=== PATIENT | male | born 1945 | race African-American/Black ===

== ENCOUNTER 2016-12-31 10:29 | Emergency (ER) | payer MEDICARE ==
--- NOTE | 2016-12-31 11:27 | ER Document Report ---
ED Medical Screen (RME) - General Chief Complaint: Shortness Of Breath Stated Complaint: SHORTNESS OF BREATH Time seen by provider: 11:27 Mode of Arrival: Ambulatory Information source: Patient TRAVEL OUTSIDE OF THE [place] IN LAST 30 DAYS: No - HPI Patient complains to provider of: SOB Onset: Other - 3 days Onset/Duration: Persistent Quality of pain: No pain Associated Symptoms: Body/muscle aches, Cough (nonproductive), Shortness of breath Exacerbated by: Denies Relieved by: Denies Similar symptoms previously: No Recently seen / treated by doctor: Yes - Dr Smith Notes: 12/31/16 11:30 Patient is a 71-year-old male with a history of diabetes, hypertension, who presents to the emergency room complaining of difficulty breathing with chest tightness 3 days, last week he had a cough which was productive, that has since resolved, but his shortness of breath and chest tightness has not, he recently saw Dr. Smith for this, was given a pro-air inhaler which is not helping - Related Data Allergies/Adverse Reactions: No Known Allergies Allergy (Verified 12/31/16 10:39) Past Medical History - Past Medical History Cardiac Medical History: Reports: Hx Hypercholesterolemia, Hx Hypertension Pulmonary Medical History: Denies: Hx Tuberculosis Endocrine Medical History: Reports: Hx Diabetes Mellitus Type 2 Renal/ Medical History: Denies: Hx Peritoneal Dialysis Psychiatric Medical History: Denies: Hx Depression Past Surgical History: Reports: Hx Orthopedic Surgery - left shoulder. Denies: Hx Pacemaker - Immunizations Hx Diphtheria, Pertussis, Tetanus Vaccination: Yes Physical Exam - Vital signs Vitals: Temp Pulse Resp BP Pulse Ox 97.8 F 66 18 203/112 H 95 12/31/16 10:38 12/31/16 10:38 12/31/16 10:38 12/31/16 10:38 12/31/16 10:38 Course - Vital Signs Vital signs: Temp Pulse Resp BP Pulse Ox 97.8 F 66 18 203/112 H 95 12/31/16 10:38 12/31/16 10:38 12/31/16 10:38 12/31/16 10:38 12/31/16 10:38
[2016-12-31] MEDS ORDERED: IPRATROPIUM/ALBUTEROL 0.5-2.5 MG/3 ML AMPUL NEB ONE (11:28)
[2016-12-31] MEDS ORDERED: CLONIDINE HCL 0.2 MG TABLET PO ONE (11:29)
[2016-12-31 11:49] LABS: ABSOLUTE EOSINOPHILS # (AUTO) 0.2 10^3/uL (0.0-0.6); ABSOLUTE LYMPHOCYTES (AUTO) 0.7 10^3/uL (0.5-4.7); ABSOLUTE MONOCYTES (AUTO) 0.4 10^3/uL (0.1-1.4); ABSOLUTE NEUT (AUTO) 4.5 10^3/uL (1.7-8.2); BASOPHILS % (AUTO) 0.6 % (0-2); EOSINOPHILS % (AUTO) 4.2 % (0-6); HEMATOCRIT 32.2 % (37.9-51.0); HEMOGLOBIN 10.5 g/dL (13.5-17.0); HGB HCT DIFFERENCE -0.7; LYMPHOCYTES % (AUTO) 11.2 % (13-45); MEAN CORPUSCULAR HEMOGLOBIN 27.5 pg (27.0-33.4); MEAN CORPUSCULAR HGB CONC 32.7 g/dL (32.0-36.0); MEAN CORPUSCULAR VOLUME 84 fl (80-97); MONOCYTES % (AUTO) 7.6 % (3-13); RED BLOOD COUNT 3.83 10^6/uL (4.35-5.55); RED CELL DISTRIBUTION WIDTH 16.1 % (11.5-14.0); SEGMENTED NEUTROPHILS % (AUTO) 76.4 % (42-78); WHITE BLOOD COUNT 5.8 10^3/uL (4.0-10.5)
[2016-12-31 12:04] LABS: ALANINE AMINOTRANSFERASE 47 U/L (21-72); ALBUMIN 3.9 g/dL (3.5-5.0); ALKALINE PHOSPHATASE 77 U/L (38-126); ANION GAP 14 (5-19); ASPARTATE AMINO TRANSFERASE 22 U/L (17-59); BILIRUBIN,DIRECT 0.3 mg/dL (0.0-0.4); BILIRUBIN,TOTAL 1.2 mg/dL (0.2-1.3); BLOOD UREA NITROGEN 44 mg/dL (7-20); CALCIUM 9.4 mg/dL (8.4-10.2); CARBON DIOXIDE 24 mmol/L (22-30); CHLORIDE 103 mmol/L (98-107); CREATINE KINASE 197 U/L (55-170); CREATININE RESULT 5.31 mg/dL (0.52-1.25); GLUCOSE 239 mg/dL (75-110); POTASSIUM 3.4 mmol/L (3.6-5.0); SODIUM 141.2 mmol/L (137-145); TOTAL PROTEIN 7.1 g/dL (6.3-8.2)
[2016-12-31 12:16] LABS: CREATINE KINASE MB 3.92 ng/mL (<4.55)
[2016-12-31 12:18] LABS: TROPONIN I 0.05 ng/mL
[2016-12-31] MEDS ORDERED: NITROGLYCERIN 2% OINTMENT 1 GM PACKET TP ONE (12:38)
--- NOTE | 2016-12-31 13:26 | EKG REPORT ---
SEVERITY:- ABNORMAL ECG - SINUS RHYTHM FIRST DEGREE AV BLOCK PROBABLE LEFT ATRIAL ABNORMALITY NONSPECIFIC INTRAVENTRICULAR CONDUCTION DELAY LEFT VENTRICULAR HYPERTROPHY : Confirmed by: Tejal Norris MD 31-Dec-2016 13:25:24
[2016-12-31] MEDS ORDERED: HYDRALAZINE HCL 50 MG TABLET PO ONE (13:49)
[2016-12-31] MEDS ORDERED: CLONIDINE HCL 0.1 MG TABLET PO ONE (13:49)
--- NOTE | 2016-12-31 14:49 | ER Document Report ---
ED General - General Chief Complaint: Shortness Of Breath Stated Complaint: SHORTNESS OF BREATH Mode of Arrival: Ambulatory TRAVEL OUTSIDE OF THE [place] IN LAST 30 DAYS: No - HPI Patient complains to provider of: shortness of breath Notes: Patient with a history of chronic kidney disease also states he has a history of CHF coming in today for shortness of breath. Patient states was recently seen by his PCP and was given an inhaler states she's only using inhaler twice however did not have any relief therefore came to the ER this morning. Patient did receive a nebulizer treatment from the Dr. carreno upon my evaluation patient states his dyspnea has improved 100% and is no longer symptomatic. Patient denies any recent travel denies any fevers chills nausea vomiting diarrhea chest pain abdominal pain. Patient states she is compliant with his blood pressure medications although he isn't hypertensive. Patient states that his cell attendant helper Dr. Boyle is currently doing specialized testing is taking them off a lot of medications. Patient states he is currently on Lasix clonidine and losartan of which she has taken appropriately. Upon my evaluation patient is in no obvious distress - Related Data Allergies/Adverse Reactions: No Known Allergies Allergy (Verified 12/31/16 10:39) Past Medical History - General Information source: Patient - Social History Smoking Status: Never Smoker Chew tobacco use (# tins/day): No Frequency of alcohol use: None Drug Abuse: None Family History: None Patient has suicidal ideation: No Patient has homicidal ideation: No - Past Medical History Cardiac Medical History: Reports: Hx Hypercholesterolemia, Hx Hypertension Pulmonary Medical History: Denies: Hx Tuberculosis Endocrine Medical History: Reports: Hx Diabetes Mellitus Type 2 Renal/ Medical History: Denies: Hx Peritoneal Dialysis Psychiatric Medical History: Denies: Hx Depression Past Surgical History: Reports: Hx Orthopedic Surgery - left shoulder. Denies: Hx Pacemaker - Immunizations Hx Diphtheria, Pertussis, Tetanus Vaccination: Yes Hx Pneumococcal Vaccination: 05/12/12 Review of Systems - Review of Systems Constitutional: No symptoms reported EENT: No symptoms reported Cardiovascular: No symptoms reported Respiratory: Short of breath Gastrointestinal: No symptoms reported Genitourinary: No symptoms reported Male Genitourinary: No symptoms reported Musculoskeletal: No symptoms reported Skin: No symptoms reported Hematologic/Lymphatic: No symptoms reported Neurological/Psychological: No symptoms reported Physical Exam - Vital signs Vitals: Temp Pulse Resp BP Pulse Ox 97.8 F 66 18 203/112 H 95 12/31/16 10:38 12/31/16 10:38 12/31/16 10:38 12/31/16 10:38 12/31/16 10:38 Interpretation: Hypertensive - General General appearance: Appears well, Alert - HEENT Head: Normocephalic, Atraumatic Eyes: Normal Pupils: PERRL - Respiratory Respiratory status: No respiratory distress Chest status: Nontender Breath sounds: Normal Chest palpation: Normal - Cardiovascular Rhythm: Regular Heart sounds: Normal auscultation Murmur: No - Abdominal Inspection: Normal Distension: No distension Bowel sounds: Normal Tenderness: Nontender Organomegaly: No organomegaly - Back Back: Normal, Nontender - Extremities General upper extremity: Normal inspection, Nontender, Normal color, Normal ROM , Normal temperature General lower extremity: Normal inspection, Nontender, Normal color, Normal ROM , Normal temperature, Normal weight bearing. No: Yulia's sign - Neurological Neuro grossly intact: Yes Cognition: Normal Orientation: AAOx4 Goff Coma Scale Eye Opening: Spontaneous Celestine Coma Scale Verbal: Oriented Celestine Coma Scale Motor: Obeys Commands Celestine Coma Scale Total: 15 Speech: Normal Motor strength normal: LUE, RUE, LLE, RLE Sensory: Normal - Psychological Associated symptoms: Normal affect, Normal mood - Skin Skin Temperature: Warm Skin Moisture: Dry Skin Color: Normal Course - Re-evaluation Re-evalutation: 12/31/16 15:23 Review the patient's previous visits that showed admission for hypertensive urgency however upon discharge patient's current medications have changed drastically. I did touch base with cell attendant helper on-call Dr. antunez who did suggest patient can be started on hydralazine 50 mg twice a day. This was performed the reduction the patient's blood pressure. Patient is to remain asymptomatic states that his breathing was 100% better. Instructed the patient to using inhaler that is our been prescribed 2 puffs every 4 hours for the next 5 days more likely is having some mild reactive airway disease. Patient will be discharged home follow-up primary care physician and his own cell attendant helper - Vital Signs Vital signs: Temp Pulse Resp BP Pulse Ox 98.2 F 64 20 219/113 H 100 12/31/16 12:33 12/31/16 12:33 12/31/16 12:33 12/31/16 12:33 12/31/16 12:33 - Laboratory Result Diagrams: 12/31/16 11:35 12/31/16 11:35 Laboratory results interpreted by me: 12/31/16 12/31/16 12/31/16 11:35 11:35 11:35 RBC 3.83 L Hgb 10.5 L Hct 32.2 L RDW 16.1 H Lymphocytes % 11.2 L Potassium 3.4 L BUN 44 H Creatinine 5.31 H Est GFR ( Amer) 13 L Est GFR (Non-Af Amer) 11 L Glucose 239 H Creatine Kinase 197 H NT-Pro-B Natriuret Pep 6770 H Discharge - Discharge Clinical Impression: Dyspnea Qualifiers: Dyspnea type: unspecified Qualified Code(s): R06.00 - Dyspnea, unspecified Chronic kidney disease (CKD) Qualifiers: Chronic kidney disease stage: unspecified stage Qualified Code(s): N18.9 - Chronic kidney disease, unspecified Hypertension Qualifiers: Hypertension type: unspecified secondary hypertension Qualified Code(s): I15.9 - Secondary hypertension, unspecified; I15 - Secondary hypertension Condition: Good Disposition: HOME, SELF-CARE Instructions: Dyspnea, Nonspecific ([facility]) Additional Instructions: Take medication as prescribed. Please use the inhaler that you have 2 puffs at least every 4 hours for the next 5 days you may use the inhaler as needed. Return to ER symptoms worsen. Please let Dr. Boyle noted that we did adjust your blood pressure medication and have added you back on hydralazine in consultation with Dr. Antunez Prescriptions: Hydralazine HCl 50 mg PO BID #60 tablet Forms: Elevated Blood Pressure
[2016-12-31 15:42] VITALS: BP 178/116
== END 2016-12-31 15:45 | disposition home or self-care (01) ==
LOC: ER 10:29
DX: I13.0 Hypertensive heart and chronic kidney disease with heart failure and stage 1 through stage 4 chronic kidney disease, or unspecified chronic kidney disease (principal); I50.9 Heart failure, unspecified; N18.9 Chronic kidney disease, unspecified; E11.22 Type 2 diabetes mellitus with diabetic chronic kidney disease; Z79.899 Other long term (current) drug therapy; R06.02 Shortness of breath
CPT/HCPCS: 93005; 94640; 99285; 36415; 82553; 82550; 85025; 80053; 84484; 83880; 71020; 93010; A9270 ×4; J7620

== ENCOUNTER → 2017-01-24 | Outpatient (CLI) | payer MEDICARE ==
[2017-01-24 13:59] LABS: HEMATOCRIT 30.8 % (37.9-51.0); HEMOGLOBIN 10.1 g/dL (13.5-17.0); HGB HCT DIFFERENCE -0.5; MEAN CORPUSCULAR HEMOGLOBIN 27.5 pg (27.0-33.4); MEAN CORPUSCULAR HGB CONC 32.7 g/dL (32.0-36.0); MEAN CORPUSCULAR VOLUME 84 fl (80-97); RED BLOOD COUNT 3.65 10^6/uL (4.35-5.55); RED CELL DISTRIBUTION WIDTH 16.5 % (11.5-14.0); WHITE BLOOD COUNT 5.3 10^3/uL (4.0-10.5)
[2017-01-24 14:18] LABS: ALANINE AMINOTRANSFERASE 40 U/L (21-72); ALBUMIN 4.2 g/dL (3.5-5.0); ALKALINE PHOSPHATASE 71 U/L (38-126); ANION GAP 17 (5-19); ASPARTATE AMINO TRANSFERASE 25 U/L (17-59); BILIRUBIN,DIRECT 0.4 mg/dL (0.0-0.4); BILIRUBIN,TOTAL 0.8 mg/dL (0.2-1.3); BLOOD UREA NITROGEN 49 mg/dL (7-20); CALCIUM 9.4 mg/dL (8.4-10.2); CARBON DIOXIDE 20 mmol/L (22-30); CHLORIDE 104 mmol/L (98-107); CREATINE KINASE 362 U/L (55-170); CREATININE RESULT 5.74 mg/dL (0.52-1.25); GLUCOSE 123 mg/dL (75-110); LDH 578 U/L (313-618); MAGNESIUM 2.3 mg/dL (1.6-2.3); POTASSIUM 3.9 mmol/L (3.6-5.0); SODIUM 140.8 mmol/L (137-145); TOTAL PROTEIN 7.3 g/dL (6.3-8.2)
== END ==
LOC: OD 13:00
PROVIDERS: ATTEND Internal Medicine Nephrology
DX: E11.22 Type 2 diabetes mellitus with diabetic chronic kidney disease (principal); I12.9 Hypertensive chronic kidney disease with stage 1 through stage 4 chronic kidney disease, or unspecified chronic kidney disease; N18.4 Chronic kidney disease, stage 4 (severe); D64.9 Anemia, unspecified
CPT/HCPCS: 36415; 80053; 82550; 83615; 83735; 83970; 84100; 85027

== ENCOUNTER 2017-01-25 07:14 | Emergency (ER) | payer MEDICARE ==
--- NOTE | 2017-01-25 08:16 | ER Document Report ---
ED Respiratory Problem - General Chief Complaint: Breathing Difficulty Stated Complaint: WEAKNESS Time Seen by Provider: 01/25/17 08:12 Mode of Arrival: Ambulatory Information source: Patient Notes: Patient is a 71-year-old -[place] male who presents to the ER today for shortness of breath after he woke up this morning, was getting ready for his day , about to make coffee and all of a sudden had an episode of 10-15 minutes long where he could not catch his breath. Patient states that he was gasping for air and his daughter started "beating on his chest" per . He states he felt like he had something in his throat that was choking him. He has never had this happen before. He states that after 15 minutes of his daughter telling him to "just brief" that he finally calmed down and was able to catch his breath. He did start a new medication for the first time last night, nifedipine 60 mg. He denies any chest pain except for after the fact which he blames on his daughter beating on his chest. He denies any symptoms at all now. He has no history of heart attack, stroke or blood clots. TRAVEL OUTSIDE OF THE [place] IN LAST 30 DAYS: No - Related Data Allergies/Adverse Reactions: No Known Allergies Allergy (Verified 12/31/16 10:39) Past Medical History - General Information source: Patient - Social History Smoking Status: Former Smoker Family History: None - Past Medical History Cardiac Medical History: Reports: Hx Hypercholesterolemia, Hx Hypertension Pulmonary Medical History: Denies: Hx Tuberculosis Endocrine Medical History: Reports: Hx Diabetes Mellitus Type 2 Renal/ Medical History: Denies: Hx Peritoneal Dialysis Psychiatric Medical History: Denies: Hx Depression Past Surgical History: Reports: Hx Orthopedic Surgery - left shoulder. Denies: Hx Pacemaker - Immunizations Hx Diphtheria, Pertussis, Tetanus Vaccination: Yes Hx Pneumococcal Vaccination: 05/12/12 Review of Systems - Review of Systems Constitutional: No symptoms reported EENT: No symptoms reported Cardiovascular: See HPI Respiratory: See HPI Gastrointestinal: See HPI Genitourinary: No symptoms reported Male Genitourinary: No symptoms reported Musculoskeletal: No symptoms reported Skin: No symptoms reported Hematologic/Lymphatic: No symptoms reported Neurological/Psychological: No symptoms reported Physical Exam - Vital signs Vitals: Temp Pulse Resp BP Pulse Ox 97.5 F 73 18 122/67 94 01/25/17 07:21 01/25/17 07:21 01/25/17 07:21 01/25/17 07:21 01/25/17 07:21 - Notes Notes: PHYSICAL EXAMINATION: GENERAL: Well-appearing, smiling and in no acute distress. HEAD: Atraumatic, normocephalic. EYES: Pupils equal round and reactive to light, extraocular movements intact, sclera anicteric, conjunctiva are normal. ENT: ear canals without erythema or foreign body, TMs pearly bone with good bony landmarks, nares patent, oropharynx clear without exudates. Moist mucous membranes. airway patent NECK: Normal range of motion, supple without lymphadenopathy LUNGS: CTAB and equal. No wheezes rales or rhonchi. HEART: Regular rate and rhythm without murmurs ABDOMEN: Soft, no tenderness. No guarding, no rebound EXTREMITIES: Normal range of motion, no pitting edema. No cyanosis. NEUROLOGICAL: Cranial nerves grossly intact. Normal sensory/motor exams. PSYCH: Normal mood, normal affect. SKIN: Warm, Dry, normal turgor, no rashes or lesions noted Course - Re-evaluation Re-evalutation: 01/25/17 12:04 normal chest x-ray, soft tissue neck x-ray and all other lab work is at baseline. Patient did have a slightly elevated troponin, but repeat troponin 3 hours later was decreased and within normal limits. - Vital Signs Vital signs: Temp Pulse Resp BP Pulse Ox 97.5 F 73 15 146/82 H 94 01/25/17 07:21 01/25/17 07:21 01/25/17 10:01 01/25/17 10:01 01/25/17 10:01 - Laboratory Result Diagrams: 01/25/17 08:12 01/25/17 08:12 Laboratory results interpreted by me: 01/25/17 01/25/17 01/25/17 08:12 08:12 09:57 RBC 3.86 L Hgb 10.4 L Hct 32.5 L RDW 16.3 H Lymphocytes % 10.4 L Carbon Dioxide 20 L BUN 53 H Creatinine 5.84 H Est GFR ( Amer) 12 L Est GFR (Non-Af Amer) 10 L Glucose 135 H Direct Bilirubin 0.6 H Creatine Kinase 274 H Lipase 406.5 H Urine Protein >=500 H Urine Glucose (UA) 50 H Discharge - Discharge Clinical Impression: SOB (shortness of breath) HTN (hypertension) Qualifiers: Hypertension type: essential hypertension Qualified Code(s): I10 - Essential ( primary) hypertension Condition: Stable Disposition: HOME, SELF-CARE Additional Instructions: Return immediately for any new or worsening symptoms. Follow up with primary care provider, call tomorrow to make followup appointment. Prescriptions: Amlodipine Besylate 10 mg PO DAILY #14 tab Referrals: BHUPENDRA GUZMAN MD [Primary Care Provider] - Follow up as needed
[2017-01-25 08:31] LABS: ABSOLUTE BASOPHILS # (AUTO) 0.1 10^3/uL (0.0-0.2); ABSOLUTE EOSINOPHILS # (AUTO) 0.3 10^3/uL (0.0-0.6); ABSOLUTE LYMPHOCYTES (AUTO) 0.7 10^3/uL (0.5-4.7); ABSOLUTE MONOCYTES (AUTO) 0.6 10^3/uL (0.1-1.4); ABSOLUTE NEUT (AUTO) 5.5 10^3/uL (1.7-8.2); EOSINOPHILS % (AUTO) 3.7 % (0-6); HEMATOCRIT 32.5 % (37.9-51.0); HEMOGLOBIN 10.4 g/dL (13.5-17.0); HGB HCT DIFFERENCE -1.3; LYMPHOCYTES % (AUTO) 10.4 % (13-45); MEAN CORPUSCULAR HEMOGLOBIN 27.1 pg (27.0-33.4); MEAN CORPUSCULAR HGB CONC 32.1 g/dL (32.0-36.0); MEAN CORPUSCULAR VOLUME 84 fl (80-97); MONOCYTES % (AUTO) 8.1 % (3-13); RED BLOOD COUNT 3.86 10^6/uL (4.35-5.55); RED CELL DISTRIBUTION WIDTH 16.3 % (11.5-14.0); SEGMENTED NEUTROPHILS % (AUTO) 76.8 % (42-78); WHITE BLOOD COUNT 7.1 10^3/uL (4.0-10.5)
[2017-01-25 08:48] LABS: ALANINE AMINOTRANSFERASE 35 U/L (21-72); ALBUMIN 4.3 g/dL (3.5-5.0); ALKALINE PHOSPHATASE 72 U/L (38-126); ANION GAP 14 (5-19); ASPARTATE AMINO TRANSFERASE 28 U/L (17-59); BILIRUBIN,DIRECT 0.6 mg/dL (0.0-0.4); BLOOD UREA NITROGEN 53 mg/dL (7-20); CALCIUM 9.5 mg/dL (8.4-10.2); CARBON DIOXIDE 20 mmol/L (22-30); CHLORIDE 106 mmol/L (98-107); CREATINE KINASE 274 U/L (55-170); CREATININE RESULT 5.84 mg/dL (0.52-1.25); GLUCOSE 135 mg/dL (75-110); LIPASE 406.5 U/L (23-300); POTASSIUM 4.4 mmol/L (3.6-5.0); TOTAL PROTEIN 7.8 g/dL (6.3-8.2)
[2017-01-25 09:00] LABS: CREATINE KINASE MB 3.98 ng/mL (<4.55)
[2017-01-25 09:12] LABS: TROPONIN I 0.035 ng/mL
[2017-01-25 10:11] LABS: APPEARANCE,URINE CLEAR; BILIRUBIN,URINE NEGATIVE (NEGATIVE); GLUCOSE, URINE 50 mg/dL (NEGATIVE); KETONES,URINE NEGATIVE (NEGATIVE); LEUKOCYTE ESTERASE,URINE NEGATIVE (NEGATIVE); NITRITE,URINE NEGATIVE (NEGATIVE); PROTEIN,URINE >=500 mg/dL (NEGATIVE); URINE SPECIFIC GRAVITY 1.011; UROBILINOGEN,URINE NEGATIVE mg/dL (<2.0)
[2017-01-25] MEDS ORDERED: AMLODIPINE BESYLATE 10 MG TABLET PO ONE (12:12)
[2017-01-25 12:50] VITALS: BP 168/95
--- NOTE | 2017-01-25 13:13 | EKG REPORT ---
SEVERITY:- ABNORMAL ECG - SINUS RHYTHM FIRST DEGREE AV BLOCK PROBABLE LEFT VENTRICULAR HYPERTROPHY : Confirmed by: Jovany Palomares 25-Jan-2017 13:12:38
== END 2017-01-25 12:50 | disposition home or self-care (01) ==
LOC: ER 07:14
DX: R06.02 Shortness of breath (principal); I10 Essential (primary) hypertension; R53.1 Weakness; Z87.891 Personal history of nicotine dependence
CPT/HCPCS: 93005; 99285; 36415; 82553; 82550; 83690; 85025; 80053; 81001; 84484; 71020; 70360; 93010; A9270

== ENCOUNTER → 2017-02-06 | Outpatient (CLI) | payer MEDICARE ==
[2017-02-06 12:59] LABS: HEMATOCRIT 32.8 % (37.9-51.0); HEMOGLOBIN 10.8 g/dL (13.5-17.0); HGB HCT DIFFERENCE -0.4; MEAN CORPUSCULAR HEMOGLOBIN 27.2 pg (27.0-33.4); MEAN CORPUSCULAR VOLUME 83 fl (80-97); RED BLOOD COUNT 3.97 10^6/uL (4.35-5.55); WHITE BLOOD COUNT 5.9 10^3/uL (4.0-10.5)
[2017-02-06 13:28] LABS: ANION GAP 13 (5-19); BLOOD UREA NITROGEN 50 mg/dL (7-20); CALCIUM 9.7 mg/dL (8.4-10.2); CARBON DIOXIDE 23 mmol/L (22-30); CHLORIDE 104 mmol/L (98-107); CREATINE KINASE 292 U/L (55-170); CREATININE RESULT 6.09 mg/dL (0.52-1.25); GLUCOSE 110 mg/dL (75-110); POTASSIUM 4.2 mmol/L (3.6-5.0); SODIUM 139.7 mmol/L (137-145)
== END ==
LOC: OD 12:07
PROVIDERS: ATTEND Internal Medicine Nephrology
DX: N18.4 Chronic kidney disease, stage 4 (severe) (principal); R80.9 Proteinuria, unspecified
CPT/HCPCS: 36415; 80048; 82550; 85027

== ENCOUNTER → 2017-02-21 | Outpatient (CLI) | payer MEDICARE ==
[2017-02-21 11:09] LABS: ABSOLUTE BASOPHILS # (AUTO) 0.1 10^3/uL (0.0-0.2); ABSOLUTE EOSINOPHILS # (AUTO) 0.4 10^3/uL (0.0-0.6); ABSOLUTE LYMPHOCYTES (AUTO) 1.1 10^3/uL (0.5-4.7); ABSOLUTE MONOCYTES (AUTO) 0.6 10^3/uL (0.1-1.4); ABSOLUTE NEUT (AUTO) 4.2 10^3/uL (1.7-8.2); EOSINOPHILS % (AUTO) 6.4 % (0-6); HEMATOCRIT 36.5 % (37.9-51.0); HEMOGLOBIN 12.2 g/dL (13.5-17.0); HGB HCT DIFFERENCE 0.1; LYMPHOCYTES % (AUTO) 16.6 % (13-45); MEAN CORPUSCULAR HEMOGLOBIN 27.4 pg (27.0-33.4); MEAN CORPUSCULAR HGB CONC 33.4 g/dL (32.0-36.0); MEAN CORPUSCULAR VOLUME 82 fl (80-97); MONOCYTES % (AUTO) 9.2 % (3-13); RED BLOOD COUNT 4.45 10^6/uL (4.35-5.55); RED CELL DISTRIBUTION WIDTH 15.5 % (11.5-14.0); SEGMENTED NEUTROPHILS % (AUTO) 66.8 % (42-78); WHITE BLOOD COUNT 6.4 10^3/uL (4.0-10.5)
[2017-02-21 11:25] LABS: ANION GAP 14 (5-19); BLOOD UREA NITROGEN 59 mg/dL (7-20); CALCIUM 9.8 mg/dL (8.4-10.2); CARBON DIOXIDE 23 mmol/L (22-30); CHLORIDE 100 mmol/L (98-107); CREATININE RESULT 6.32 mg/dL (0.52-1.25); GLUCOSE 292 mg/dL (75-110); PHOSPHORUS 5.3 mg/dL (2.5-4.5); POTASSIUM 4.2 mmol/L (3.6-5.0); SODIUM 137.2 mmol/L (137-145)
== END ==
LOC: OD 09:43
PROVIDERS: ATTEND Internal Medicine Nephrology
DX: N18.4 Chronic kidney disease, stage 4 (severe) (principal); D64.9 Anemia, unspecified; R80.9 Proteinuria, unspecified
CPT/HCPCS: 36415; 80048; 83970; 84100; 85025

== ENCOUNTER → 2017-04-14 | Outpatient (CLI) | payer MEDICARE ==
[2017-04-14 15:29] LABS: HEMATOCRIT 31.8 % (37.9-51.0); HGB HCT DIFFERENCE 1.2; MEAN CORPUSCULAR HEMOGLOBIN 27.5 pg (27.0-33.4); MEAN CORPUSCULAR HGB CONC 34.6 g/dL (32.0-36.0); MEAN CORPUSCULAR VOLUME 79 fl (80-97); RED CELL DISTRIBUTION WIDTH 15.2 % (11.5-14.0); WHITE BLOOD COUNT 6.3 10^3/uL (4.0-10.5)
[2017-04-14 15:43] LABS: ANION GAP 17 (5-19); BLOOD UREA NITROGEN 68 mg/dL (7-20); CARBON DIOXIDE 21 mmol/L (22-30); CHLORIDE 103 mmol/L (98-107); CREATININE RESULT 8.49 mg/dL (0.52-1.25); GLUCOSE 194 mg/dL (75-110); PHOSPHORUS 6.4 mg/dL (2.5-4.5); POTASSIUM 3.6 mmol/L (3.6-5.0); SODIUM 140.5 mmol/L (137-145)
== END ==
LOC: OD 14:10
PROVIDERS: ATTEND Internal Medicine Nephrology
DX: I12.9 Hypertensive chronic kidney disease with stage 1 through stage 4 chronic kidney disease, or unspecified chronic kidney disease (principal); N18.4 Chronic kidney disease, stage 4 (severe); D64.9 Anemia, unspecified; E11.9 Type 2 diabetes mellitus without complications
CPT/HCPCS: 36415; 80048; 83970; 84100; 85027

== ENCOUNTER → 2017-06-09 | Outpatient (CLI) | payer MEDICARE ==
[2017-06-09 17:12] LABS: HEMATOCRIT 28.6 % (37.9-51.0); HEMOGLOBIN 9.5 g/dL (13.5-17.0); HGB HCT DIFFERENCE -0.1; MEAN CORPUSCULAR HGB CONC 33.1 g/dL (32.0-36.0); MEAN CORPUSCULAR VOLUME 81 fl (80-97); RED BLOOD COUNT 3.51 10^6/uL (4.35-5.55); RED CELL DISTRIBUTION WIDTH 16.7 % (11.5-14.0); WHITE BLOOD COUNT 8.7 10^3/uL (4.0-10.5)
[2017-06-09 17:34] LABS: BLOOD UREA NITROGEN 72 mg/dL (7-20); CALCIUM 10.3 mg/dL (8.4-10.2); GLUCOSE 110 mg/dL (75-110); MAGNESIUM 2.1 mg/dL (1.6-2.3)
[2017-06-09 18:22] LABS: CARBON DIOXIDE 17 mmol/L (22-30); CHLORIDE 101 mmol/L (98-107); POTASSIUM 3.9 mmol/L (3.6-5.0); SODIUM 139.8 mmol/L (137-145)
[2017-06-09 18:24] LABS: ANION GAP 22 (5-19)
[2017-06-11 07:44] LABS: HEPATITIS C VIRUS AB <0.1 s/co ratio (0.0-0.9)
== END ==
LOC: OD 16:06
PROVIDERS: ATTEND Internal Medicine Nephrology
DX: N18.5 Chronic kidney disease, stage 5 (principal); R80.9 Proteinuria, unspecified; I50.9 Heart failure, unspecified; E87.5 Hyperkalemia; Z11.59 Encounter for screening for other viral diseases
CPT/HCPCS: 36415; 80048; 82728; 83540; 83550; 83735; 85027; 86704; 86803; 86804; 87340

== ENCOUNTER 2018-06-02 13:14 | Emergency (ER) | payer OTHER, MEDICARE ==
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
[2018-06-02 17:25] VITALS: BP 208/88
== END 2018-06-02 17:18 | disposition home or self-care (01) ==
LOC: ER 13:14
DX: S16.1XXA Strain of muscle, fascia and tendon at neck level, initial encounter (principal); S09.90XA Unspecified injury of head, initial encounter; M54.89 Other dorsalgia; R51 Headache; M54.2 Cervicalgia; V49.40XA Driver injured in collision with unspecified motor vehicles in traffic accident, initial encounter; I12.0 Hypertensive chronic kidney disease with stage 5 chronic kidney disease or end stage renal disease; E11.22 Type 2 diabetes mellitus with diabetic chronic kidney disease; N18.6 End stage renal disease; Z99.2 Dependence on renal dialysis
CPT/HCPCS: 70450; 72070; 72125; 99284

== ENCOUNTER → 2019-08-18 | Outpatient (CLI) | payer MEDICARE ==
[2019-08-18 09:08] LABS: ABSOLUTE BASOPHILS # (AUTO) 0.1 10^3/uL (0.0-0.2); ABSOLUTE EOSINOPHILS # (AUTO) 0.4 10^3/uL (0.0-0.6); ABSOLUTE LYMPHOCYTES (AUTO) 0.8 10^3/uL (0.5-4.7); ABSOLUTE MONOCYTES (AUTO) 0.5 10^3/uL (0.1-1.4); ABSOLUTE NEUT (AUTO) 4.6 10^3/uL (1.7-8.2); BASOPHILS % (AUTO) 0.8 % (0-2); EOSINOPHILS % (AUTO) 6.1 % (0-6); HEMATOCRIT 33.4 % (37.9-51.0); HEMOGLOBIN 11.3 g/dL (13.5-17.0); LYMPHOCYTES % (AUTO) 12.9 % (13-45); MEAN CORPUSCULAR HEMOGLOBIN 28.8 pg (27.0-33.4); MEAN CORPUSCULAR HGB CONC 33.9 g/dL (32.0-36.0); MEAN CORPUSCULAR VOLUME 85 fl (80-97); MONOCYTES % (AUTO) 8.5 % (3-13); PLATELET COUNT 232 10^3/uL (150-450); RED BLOOD COUNT 3.93 10^6/uL (4.35-5.55); RED CELL DISTRIBUTION WIDTH 15.8 % (11.5-14.0); SEGMENTED NEUTROPHILS % (AUTO) 71.7 % (42-78); TOTAL CELLS COUNTED % (AUTO) 100 %; WHITE BLOOD COUNT 6.4 10^3/uL (4.0-10.5)
[2019-08-18 09:28] LABS: ALBUMIN 4.3 g/dL (3.5-5.0); ALKALINE PHOSPHATASE 119 U/L (38-126); ANION GAP 16 (5-19); ASPARTATE AMINO TRANSFERASE 16 U/L (17-59); BILIRUBIN,DIRECT 0.4 mg/dL (0.0-0.4); BILIRUBIN,TOTAL 0.6 mg/dL (0.2-1.3); BLOOD UREA NITROGEN 47 mg/dL (7-20); CALCIUM 9.8 mg/dL (8.4-10.2); CARBON DIOXIDE 21 mmol/L (22-30); CHLORIDE 104 mmol/L (98-107); CHOLESTEROL 127.39 mg/dL (0-200); GLUCOSE 144 mg/dL (75-110); POTASSIUM 4.6 mmol/L (3.6-5.0); TRIGLYCERIDES 180 mg/dL (<150)
[2019-08-18 09:39] LABS: DIRECT LDL 66 mg/dL (<100)
== END ==
LOC: OD 07:52
PROVIDERS: ATTEND Internal Medicine
DX: E11.22 Type 2 diabetes mellitus with diabetic chronic kidney disease (principal); I12.0 Hypertensive chronic kidney disease with stage 5 chronic kidney disease or end stage renal disease; N18.5 Chronic kidney disease, stage 5; E78.00 Pure hypercholesterolemia, unspecified; R35.0 Frequency of micturition; Z79.899 Other long term (current) drug therapy
CPT/HCPCS: 36415; 80053; 80061; 83036; 84153; 85025

== ENCOUNTER 2019-11-28 15:59 | Inpatient (IN) | payer MEDICARE ==
[2019-11-28] MEDS ORDERED: ASPIRIN 81 MG TABLET, CHEWABLE PO ONE (16:28)
--- NOTE | 2019-11-28 16:31 | ER Document Report ---
ED Medical Screen (RME) - General Chief Complaint: Chest Tightness Stated Complaint: CHEST TIGHTNESS Time Seen by Provider: 11/28/19 16:25 Primary Care Provider: BHUPENDRA GUZMAN MD [Primary Care Provider] - Follow up as needed Mode of Arrival: Wheelchair Information source: Patient Notes: 74-year-old male with history of dialysis presents to the emergency department with complaints of chest tightness shortness of breath. Patient O2 sats were very low upon arrival. He does not use home oxygen. Patient reports he woke up with chest tightness early this morning approximately 0200. Reports he was having shortness of breath at that time. Denies fever nausea vomiting diarrhea. Reports it does not hurt to take a deep breath he just feels like he is having tightness. Patient is placed on 4 L nasal cannula his O2 sats are 91% and dropped down when he is talking. I have greeted and performed a rapid initial assessment of this patient. A comprehensive ED assessment and evaluation of the patient, analysis of test results and completion of the medical decision making process will be conducted by additional ED providers. TRAVEL OUTSIDE OF THE [place] IN LAST 30 DAYS: No - Related Data Allergies/Adverse Reactions: No Known Allergies Allergy (Verified 06/02/18 13:15) Past Medical History - Past Medical History Cardiac Medical History: Reports: Hx Hypercholesterolemia, Hx Hypertension Pulmonary Medical History: Denies: Hx Tuberculosis Endocrine Medical History: Reports: Hx Diabetes Mellitus Type 2 Renal/ Medical History: Reports: Hx End Stage Renal Disease, Hx Hemodialysis. Denies: Hx Peritoneal Dialysis GI Medical History: Reports: Hx Colonoscopy Musculoskeltal Medical History: Reports Hx Arthritis, Reports Hx Musculoskeletal Deformity, Reports Hx Musculoskeletal Trauma Psychiatric Medical History: Denies: Hx Depression Past Surgical History: Reports: Hx Orthopedic Surgery - left shoulder, Hx Rectal Surgery - Hemorrhoidectomy, Hx Vascular Surgery - Dialysis catheter and dialysis shunt, Other - Eye surgery. Denies: Hx Pacemaker - Immunizations Hx Diphtheria, Pertussis, Tetanus Vaccination: Yes Physical Exam - Vital signs Vitals: Temp Pulse Resp BP Pulse Ox 98.3 F 90 20 219/99 H 80 L 11/28/19 16:23 11/28/19 16:23 11/28/19 16:23 11/28/19 16:23 11/28/19 16:23 Course - Vital Signs Vital signs: Temp Pulse Resp BP Pulse Ox 98.3 F 90 20 219/99 H 92 11/28/19 16:23 11/28/19 16:23 11/28/19 16:23 11/28/19 16:23 11/28/19 16:24 Doctor's Discharge - Discharge Referrals: BHUPENDRA GUZMAN MD [Primary Care Provider] - Follow up as needed
[2019-11-28 17:36] LABS: ABSOLUTE BASOPHILS # (AUTO) 0.1 10^3/uL (0.0-0.2); ABSOLUTE EOSINOPHILS # (AUTO) 0.3 10^3/uL (0.0-0.6); ABSOLUTE LYMPHOCYTES (AUTO) 1.1 10^3/uL (0.5-4.7); ABSOLUTE MONOCYTES (AUTO) 0.4 10^3/uL (0.1-1.4); ABSOLUTE NEUT (AUTO) 5.6 10^3/uL (1.7-8.2); BASOPHILS % (AUTO) 0.9 % (0-2); EOSINOPHILS % (AUTO) 3.8 % (0-6); HEMATOCRIT 34.4 % (37.9-51.0); HEMOGLOBIN 11.9 g/dL (13.5-17.0); LYMPHOCYTES % (AUTO) 14.2 % (13-45); MEAN CORPUSCULAR HEMOGLOBIN 29.9 pg (27.0-33.4); MEAN CORPUSCULAR HGB CONC 34.7 g/dL (32.0-36.0); MEAN CORPUSCULAR VOLUME 86 fl (80-97); MONOCYTES % (AUTO) 5.6 % (3-13); PLATELET COUNT 247 10^3/uL (150-450); RED BLOOD COUNT 3.99 10^6/uL (4.35-5.55); RED CELL DISTRIBUTION WIDTH 14.4 % (11.5-14.0); SEGMENTED NEUTROPHILS % (AUTO) 75.5 % (42-78); TOTAL CELLS COUNTED % (AUTO) 100 %; WHITE BLOOD COUNT 7.5 10^3/uL (4.0-10.5)
[2019-11-28 17:52] LABS: ALKALINE PHOSPHATASE 123 U/L (38-126); ANION GAP 15 (5-19); ASPARTATE AMINO TRANSFERASE 28 U/L (17-59); BILIRUBIN,DIRECT 0.3 mg/dL (0.0-0.4); BILIRUBIN,TOTAL 1.2 mg/dL (0.2-1.3); BLOOD UREA NITROGEN 26 mg/dL (7-20); CALCIUM 10.2 mg/dL (8.4-10.2); CARBON DIOXIDE 25 mmol/L (22-30); CHLORIDE 98 mmol/L (98-107); GLUCOSE 169 mg/dL (75-110); POTASSIUM 4.4 mmol/L (3.6-5.0); TOTAL PROTEIN 8.9 g/dL (6.3-8.2)
--- NOTE | 2019-11-28 17:56 | RADIOLOGY REPORT (SQ) ---
EXAM DESCRIPTION: CHEST 2 VIEWS COMPLETED DATE/TIME: 11/28/2019 5:39 pm REASON FOR STUDY: sob CHEST TIGHTNESS COMPARISON: 01/25/2017 TECHNIQUE: Frontal and lateral radiographic views of the chest acquired. NUMBER OF VIEWS: Two view. LIMITATIONS: None. FINDINGS: LUNGS AND PLEURA: No pneumothorax. Mild interstitial thickening bilaterally. No consolid ation or pleural effusion. MEDIASTINUM AND HILAR STRUCTURES: Stable. HEART AND VASCULAR STRUCTURES: Stable. BONES: No acute findings. HARDWARE: None in the chest. OTHER: No other significant finding. IMPRESSION: Mild interstitial thickening bilaterally. No consolidation or pleural effusion. TECHNICAL DOCUMENTATION: JOB ID: [id number] [place]-72 2010 [employer]- All Rights Reserved Reading location - IP/workstation name: [email or web address]
[2019-11-28 18:04] LABS: TROPONIN I 0.035 ng/mL
[2019-11-28] MEDS ORDERED: NITROGLYCERIN 2% OINTMENT 1 GM PACKET TP ONE (18:52)
[2019-11-28] MEDS ORDERED: FUROSEMIDE INJ/PF 100 MG/10 ML SDV IV ONE (18:52)
[2019-11-28] MEDS ORDERED: ONDANSETRON HCL INJ/PF 4 MG/2 ML SDV IV ONE (18:53)
--- NOTE | 2019-11-28 20:10 | ER Document Report ---
Entered by ALEC NASH SCRIBE 11/28/19 1834 Acting as scribe for:YANETH MILLAN DO ED General - General Chief Complaint: Shortness Of Breath Stated Complaint: CHEST TIGHTNESS Time Seen by Provider: 11/28/19 16:25 Primary Care Provider: BHUPENDRA GUZMAN MD [Primary Care Provider] - Follow up as needed Mode of Arrival: Wheelchair Information source: Patient Notes: 74-year-old male presents to the emergency department complaining of shortness of breath and chest tightness. Patient explained that his shortness of breath began yesterday and his chest tightness woke him from sleep at 2 AM this morning. Patient denies cough, fever, vomiting, diarrhea and rhinorrhea. Patient is a Friday, , Friday dialysis patient for 6 years with his last appointment yesterday. Patient reports that he was taken off his dialysis 2 hour s early yesterday due to nausea. Patient has had no sick contact. Patient presented to the ED with oxygen saturation of 80% which was improved with 4 liters of oxygen. Patient now complains of being conversationally short of breath. Client Architect: Dr. Montana Alberto TRAVEL OUTSIDE OF THE [place] IN LAST 30 DAYS: No - Related Data Allergies/Adverse Reactions: No Known Allergies Allergy (Verified 06/02/18 13:15) Past Medical History - General Information source: Patient - Social History Smoking Status: Never Smoker Cigarette use (# per day): No Chew tobacco use (# tins/day): No Frequency of alcohol use: Rare Drug Abuse: None Lives with: Family Family History: None Patient has suicidal ideation: No Patient has homicidal ideation: No - Past Medical History Cardiac Medical History: Reports: Hx Hypercholesterolemia, Hx Hypertension Endocrine Medical History: Reports: Hx Diabetes Mellitus Type 2 Renal/ Medical History: Reports: Hx End Stage Renal Disease, Hx Hemodialysis GI Medical History: Reports: Hx Colonoscopy Musculoskeletal Medical History: Reports Hx Arthritis, Reports Hx Musculoskeletal Deformity, Reports Hx Musculoskeletal Trauma Past Surgical History: Reports: Hx Orthopedic Surgery - left shoulder, Hx Rectal Surgery - Hemorrhoidectomy, Hx Vascular Surgery - Dialysis catheter and dialysis shunt, Other - Eye surgery - Immunizations Hx Diphtheria, Pertussis, Tetanus Vaccination: Yes Hx Pneumococcal Vaccination: 05/12/12 Review of Systems - Review of Systems Constitutional: See HPI. denies: Fever EENT: See HPI. denies: Nose discharge Cardiovascular: See HPI, Other - Chest tightness Respiratory: See HPI, Short of breath. denies: Cough Gastrointestinal: See HPI, Nausea. denies: Diarrhea, Vomiting Genitourinary: No symptoms reported Male Genitourinary: No symptoms reported Musculoskeletal: No symptoms reported Skin: No symptoms reported Hematologic/Lymphatic: No symptoms reported Neurological/Psychological: No symptoms reported -: Yes All other systems reviewed and negative Physical Exam - Vital signs Vitals: Temp Pulse Resp BP Pulse Ox 98.3 F 90 20 219/99 H 80 L 11/28/19 16:23 11/28/19 16:23 11/28/19 16:23 11/28/19 16:23 11/28/19 16:23 - Notes Notes: Physical Exam: General: Alert, appears well. HEENT: Normocephalic. Atraumatic. PERRL. Extraocular movements intact. Orophary nx clear. Neck: Supple. Non-tender. Respiratory: No respiratory distress. Rales at the basis. Cardiovascular: Regular rate and rhythm. Abdominal: Non-tender. No distension. Normal Bowel Sounds. Obese. Back: No gross abnormalities. Extremities: Moves all four extremities. Upper extremities: Normal inspection. Normal ROM. Lower extremities: Normal inspection. No edema. Normal ROM. Neurological: Normal cognition. AAOx4. Normal speech. Psychological: Normal affect. Normal Mood. Skin: Warm. Dry. Normal color. Course - Vital Signs Vital signs: Temp Pulse Resp BP Pulse Ox 98.3 F 90 24 H 177/85 H 92 11/28/19 16:23 11/28/19 16:23 11/28/19 20:45 11/28/19 20:45 11/28/19 20:45 - Laboratory Result Diagrams: 11/28/19 17:00 11/28/19 17:00 Laboratory results interpreted by me: 11/28/19 11/28/19 11/28/19 17:00 17:00 17:00 RBC 3.99 L Hgb 11.9 L Hct 34.4 L RDW 14.4 H BUN 26 H Creatinine 7.59 H Est GFR ( Amer) 9 L Est GFR (MDRD) Non-Af 7 L Glucose 169 H NT-Pro-B Natriuret Pep 7000 H Total Protein 8.9 H Urine Protein Urine Glucose (UA) 11/28/19 20:41 RBC Hgb Hct RDW BUN Creatinine Est GFR ( Amer) Est GFR (MDRD) Non-Af Glucose NT-Pro-B Natriuret Pep Total Protein Urine Protein >=500 H Urine Glucose (UA) 150 H - Diagnostic Test Radiology reviewed: Reports reviewed - EKG Interpretation by Me EKG shows normal: Sinus rhythm Rate: Normal Rhythm: NSR Sullivan/QRS: Left axis deviation Voltage: Increased voltage, Consistant with LVH - NSR Left Sullivan No st elevation or depression my interpretation. Discharge - Discharge Clinical Impression: Hypertensive urgency Congestive heart failure Qualifiers: Heart failure type: unspecified Heart failure chronicity: acute on chronic Qualified Code(s): I50.9 - Heart failure, unspecified Condition: Fair Disposition: ADMITTED OBSERVATION Admitting Provider: Nate (Hospitalist) Unit Admitted: Telemetry Referrals: BHUPENDRA GUZMAN MD [Primary Care Provider] - Follow up as needed I personally performed the services described in the documentation, reviewed and edited the documentation which was dictated to the scribe in my presence, and it accurately records my words and actions.
[2019-11-28 20:18] LABS: A TYPE INFLUENZA AG NEGATIVE (NEGATIVE); B INFLUENZA AG NEGATIVE (NEGATIVE)
[2019-11-28] MEDS ORDERED: LABETALOL HCL INJ 20 MG/4 ML DISP.SYRIN IV ONE (20:20)
[2019-11-28 20:54] LABS: APPEARANCE,URINE CLEAR; BILIRUBIN,URINE NEGATIVE (NEGATIVE); COLOR,URINE YELLOW; GLUCOSE, URINE 150 mg/dL (NEGATIVE); KETONES,URINE NEGATIVE (NEGATIVE); PROTEIN,URINE >=500 mg/dL (NEGATIVE); URINE SPECIFIC GRAVITY 1.008; UROBILINOGEN,URINE NEGATIVE mg/dL (<2.0)
[2019-11-28] MEDS ORDERED: HYDRALAZINE HCL INJ/PF 20 MG/1 ML SDV IV PRN (21:25)
[2019-11-28] MEDS ORDERED: LACTULOSE SYRUP 20 GM/30 ML UDCUP PO ONE (21:25)
[2019-11-28] MEDS ORDERED: IPRATROPIUM/ALBUTEROL 0.5-2.5 MG/3 ML AMPUL NEB PRN (21:39)
[2019-11-28] MEDS ORDERED: MAG HYDROX/AL HYDROX/SIMETH SUSP 30 ML UDCUP PO PRN (21:39)
[2019-11-28] MEDS ORDERED: ACETAMINOPHEN 325 MG TABLET PO PRN (21:39)
[2019-11-28] MEDS ORDERED: MAGNESIUM HYDROXIDE SUSP 30 ML UDCUP PO PRN (21:39)
[2019-11-28] MEDS ORDERED: DEXTROSE 50%-WATER 25 GM/50 ML DISP.SYRIN IV PRN ×2 (21:43)
[2019-11-28] MEDS ORDERED: GLUCAGON,HUMAN RECOMB 1 MG INJ IM PRN (21:43)
[2019-11-28] MEDS ORDERED: DEXTROSE 40% GEL 15 GM TUBE PO PRN ×2 (21:43)
[2019-11-28] MEDS ORDERED: HYDRALAZINE HCL 25 MG TABLET PO ONE (22:00)
[2019-11-28] MEDS ORDERED: AMLODIPINE BESYLATE 10 MG TABLET PO ONE (22:00)
[2019-11-28] MEDS ORDERED: LABETALOL HCL 200 MG TABLET PO SCH (22:00)
[2019-11-28] MEDS: HEPARIN SOD (PORCINE) 5,000 UNIT/ML 1 ML VIAL SUBCUT SCH (22:09)
[2019-11-29] MEDS: INSULIN LISPRO 100 UNIT/ML 3 ML VIAL SUBCUT SCH ×5 (00:21→23:24)
--- NOTE | 2019-11-29 00:34 | EKG REPORT ---
SEVERITY:- ABNORMAL ECG - SINUS RHYTHM FIRST DEGREE AV BLOCK LEFT ATRIAL ABNORMALITY LVH WITH SECONDARY REPOLARIZATION ABNORMALITY ST DEPRESSION, CONSIDER ISCHEMIA, ANT-LAT LDS : Confirmed by: Jovany Palomares 29-Nov-2019 00:33:38
[2019-11-29 03:38] LABS: ABSOLUTE BASOPHILS # (AUTO) 0.1 10^3/uL (0.0-0.2); ABSOLUTE EOSINOPHILS # (AUTO) 0.2 10^3/uL (0.0-0.6); ABSOLUTE LYMPHOCYTES (AUTO) 0.6 10^3/uL (0.5-4.7); ABSOLUTE MONOCYTES (AUTO) 0.6 10^3/uL (0.1-1.4); ABSOLUTE NEUT (AUTO) 7.2 10^3/uL (1.7-8.2); BASOPHILS % (AUTO) 0.9 % (0-2); EOSINOPHILS % (AUTO) 1.8 % (0-6); HEMATOCRIT 31.3 % (37.9-51.0); HEMOGLOBIN 10.6 g/dL (13.5-17.0); LYMPHOCYTES % (AUTO) 6.7 % (13-45); MEAN CORPUSCULAR HEMOGLOBIN 29.2 pg (27.0-33.4); MEAN CORPUSCULAR HGB CONC 33.9 g/dL (32.0-36.0); MEAN CORPUSCULAR VOLUME 86 fl (80-97); MONOCYTES % (AUTO) 6.9 % (3-13); PLATELET COUNT 197 10^3/uL (150-450); RED BLOOD COUNT 3.64 10^6/uL (4.35-5.55); RED CELL DISTRIBUTION WIDTH 14.5 % (11.5-14.0); SEGMENTED NEUTROPHILS % (AUTO) 83.7 % (42-78); TOTAL CELLS COUNTED % (AUTO) 100 %; WHITE BLOOD COUNT 8.6 10^3/uL (4.0-10.5)
[2019-11-29 04:00] LABS: ANION GAP 14 (5-19); BLOOD UREA NITROGEN 29 mg/dL (7-20); CALCIUM 9.4 mg/dL (8.4-10.2); CARBON DIOXIDE 25 mmol/L (22-30); CHLORIDE 100 mmol/L (98-107); GLUCOSE 188 mg/dL (75-110); POTASSIUM 4.2 mmol/L (3.6-5.0)
--- NOTE | 2019-11-29 04:38 | PDOC H&P ---
History of Present Illness Admission Date/PCP: 11/28/19 21:58 BHUPENDRA GUZMAN MD Patient complains of: Nausea History of Present Illness: PRASHANTH REYNOSO is a 74 year old male with a past medical history of diastolic heart failure, insulin-dependent diabetes, oliguric end-stage renal failure on hemodialysis with hemodialysis Friday with Dr. Antunez. He presents with nausea, chest pressure and abdominal pain. In the emergency department he is found to have uncontrolled hypertension in the 180 systolic range. Chest x-ray revealed mild volume overload. Cardiac enzymes and EKG unremarkable. He complains of constipation and does not remember his last bowel movement. He is unaware of recent change of medications. He admits to dietary and lifestyle indiscretion and is eating and drinking from a large bag of [employer] fast food. Past Medical History Cardiac Medical History: Reports: Hyperlipidema, Hypertension Pulmonary Medical History: Denies: Tuberculosis Endocrine Medical History: Reports: Diabetes Mellitus Type 2 Renal/ Medical History: Reports: End Stage Renal Disease Musculoskeltal Medical History: Reports: Arthritis Psychiatric Medical History: Denies: Depression Past Surgical History Past Surgical History: Reports: Orthopedic Surgery - left shoulder, Vascular Surgery - Dialysis catheter and dialysis shunt, Other - Eye surgery Denies: Pacemaker Social History Information Source: Patient, [facility] Records Lives with: Family Smoking Status: Never Smoker Electronic Cigarette use?: No Frequency of Alcohol Use: Rare Hx Recreational Drug Use: No Drugs: None Hx Prescription Drug Abuse: No - Advance Directive Resuscitation Status: Full Code Family History Family History: Hypertension Parental Family History Reviewed: Yes Children Family History Reviewed: Yes Sibling(s) Family History Reviewed.: Yes Medication/Allergy Home Medications: Albuterol Sulfate [Proair HFA] 1 - 2 puff IH Q4 PRN 11/02/15 Aspirin [Aspirin 81 mg Chewable Tablet] 81 mg PO DAILY 11/02/15 Insulin Glargine,Hum.rec.anlog [Lantus] 10 unit SQ BID #0 11/06/15 Calcium Acetate [Phoslo 667 mg Capsule] 1 cap PO TID 11/28/19 Cetirizine HCl [All Day Allergy] 1 tab PO DAILY 11/28/19 Doxazosin Mesylate [Cardura 2 mg Tablet] 2 mg PO QPM 11/28/19 Losartan Potassium 1 tab PO DAILY 11/28/19 Meloxicam [Mobic] 7.5 mg PO BID 11/28/19 Nifedipine [Nifedipine ER] 1 tab PO BID 11/28/19 Atorvastatin Calcium [Lipitor 40 mg Tablet] 20 mg PO QHS 11/29/19 Clonidine HCl [Catapres 0.1 mg Tablet] 0.2 mg PO QID 11/29/19 Allergies/Adverse Reactions: No Known Allergies Allergy (Verified 06/02/18 13:15) Review of Systems Constitutional: PRESENT: as per HPI. ABSENT: chills, fever(s), headache(s), weight gain, weight loss Eyes: ABSENT: visual disturbances Ears: ABSENT: hearing changes Cardiovascular: ABSENT: chest pain, dyspnea on exertion, edema, orthropnea, palpitations Respiratory: ABSENT: cough, hemoptysis Gastrointestinal: PRESENT: constipation. ABSENT: abdominal pain, diarrhea, hematemesis, hematochezia, nausea, vomiting Genitourinary: ABSENT: dysuria, hematuria Musculoskeletal: ABSENT: joint swelling Integumentary: ABSENT: rash, wounds Neurological: ABSENT: abnormal gait, abnormal speech, confusion, dizziness, focal weakness, syncope Psychiatric: ABSENT: anxiety, depression, homidical ideation, suicidal ideation Endocrine: ABSENT: cold intolerance, heat intolerance, polydipsia, polyuria Hematologic/Lymphatic: ABSENT: easy bleeding, easy bruising Physical Exam Vital Signs: Temp Pulse Resp BP Pulse Ox 98.5 F 80 22 H 210/85 H 95 11/28/19 23:40 11/29/19 02:00 11/28/19 23:40 11/28/19 23:40 11/28/19 23:40 Intake & Output 11/27/19 11/28/19 11/29/19 11:59 11:59 11:59 Weight 83.915 kg General appearance: PRESENT: cooperative, mild distress, well-developed, well- nourished Head exam: PRESENT: atraumatic, normocephalic Eye exam: PRESENT: conjunctiva pink, EOMI, PERRLA. ABSENT: scleral icterus Ear exam: PRESENT: normal external ear exam Mouth exam: PRESENT: moist, tongue midline Neck exam: ABSENT: carotid bruit, JVD, lymphadenopathy, thyromegaly Respiratory exam: PRESENT: clear to auscultation lucia. ABSENT: rales, rhonchi, wheezes Cardiovascular exam: PRESENT: RRR. ABSENT: diastolic murmur, rubs, systolic murmur Pulses: PRESENT: normal dorsalis pedis pul Vascular exam: PRESENT: normal capillary refill GI/Abdominal exam: PRESENT: normal bowel sounds, soft. ABSENT: distended, guarding, mass, organolmegaly, rebound, tenderness Rectal exam: PRESENT: deferred Extremities exam: PRESENT: full ROM, +1 edema. ABSENT: calf tenderness, clubbing, pedal edema Neurological exam: PRESENT: alert, awake, oriented to person, oriented to place, oriented to time, oriented to situation, CN II-XII grossly intact. ABSENT: motor sensory deficit Psychiatric exam: PRESENT: appropriate affect, normal mood. ABSENT: homicidal ideation, suicidal ideation Skin exam: PRESENT: dry, intact, warm. ABSENT: cyanosis, rash Results Laboratory Results: 11/29/19 03:21 11/29/19 03:21 11/28/19 11/28/19 11/28/19 17:00 17:00 20:41 WBC 7.5 RBC 3.99 L Hgb 11.9 L Hct 34.4 L MCV 86 MCH 29.9 MCHC 34.7 RDW 14.4 H Plt Count 247 Seg Neutrophils % 75.5 Sodium 138.0 Potassium 4.4 Chloride 98 Carbon Dioxide 25 Anion Gap 15 BUN 26 H Creatinine 7.59 H Est GFR ( Amer) 9 L Glucose 169 H Calcium 10.2 Total Bilirubin 1.2 AST 28 Alkaline Phosphatase 123 Total Protein 8.9 H Albumin 5.0 Urine Color YELLOW Urine Appearance CLEAR Urine pH 8.0 Ur Specific [place] 1.008 Urine Protein >=500 H Urine Glucose (UA) 150 H Urine Ketones NEGATIVE Urine Blood NEGATIVE Urine RBC (Auto) 1 11/29/19 11/29/19 03:21 03:21 WBC 8.6 RBC 3.64 L Hgb 10.6 L Hct 31.3 L MCV 86 MCH 29.2 MCHC 33.9 RDW 14.5 H Plt Count 197 Seg Neutrophils % 83.7 H Sodium 138.5 Potassium 4.2 Chloride 100 Carbon Dioxide 25 Anion Gap 14 BUN 29 H Creatinine 8.34 H Est GFR ( Amer) 8 L Glucose 188 H Calcium 9.4 Total Bilirubin AST Alkaline Phosphatase Total Protein Albumin Urine Color Urine Appearance Urine pH Ur Specific [place] Urine Protein Urine Glucose (UA) Urine Ketones Urine Blood Urine RBC (Auto) 11/28/19 11/28/19 11/29/19 17:00 20:41 03:21 Troponin I 0.035 0.036 0.047 NT-Pro-B Natriuret Pep 7000 H Impressions: Chest X-Ray 11/28/19 16:28 IMPRESSION: Mild interstitial thickening bilaterally. No consolidation or pleural effusion. Assessment and Plan - Diagnosis (1) End stage renal failure on dialysis Is this a current diagnosis for this admission?: Yes Plan: No metabolic derangement, hyperkalemia, mild volume overload, follow-up nep hrology consult Dr. Antunez. (2) Congestive heart failure Qualifiers: Heart failure type: unspecified Heart failure chronicity: acute on chronic Qualified Code(s): I50.9 - Heart failure, unspecified Is this a current diagnosis for this admission?: Yes Plan: Moderate diastolic heart failure from previous echo presenting with hypertensive urgency, complicated by lifestyle, dietary and likely medication noncompliance. Optimize volume, blood pressure and heart rate, follow-up chemistry (3) Hypertensive urgency Is this a current diagnosis for this admission?: Yes Plan: Likely medication noncompliance. Education and resumption of home medication for evaluation of response. (4) Diabetes Is this a current diagnosis for this admission?: Yes Plan: Complicated by noncompliance. Education, follow-up medication reconciliation and Humalog sliding scale q. before meals. (5) Constipation Is this a current diagnosis for this admission?: Yes Plan: Trial lactulose and Fleet enema as needed, bowel regiment
[2019-11-29] MEDS ORDERED: DOXAZOSIN MESYLATE 2 MG TABLET PO ONE (05:00)
[2019-11-29] MEDS: HYDRALAZINE HCL 25 MG TABLET PO SCH ×4 (05:22→23:24)
[2019-11-29] MEDS: HEPARIN SOD (PORCINE) 5,000 UNIT/ML 1 ML VIAL SUBCUT SCH ×3 (05:22→21:10)
[2019-11-29] MEDS: CALCIUM ACETATE 667 MG CAPSULE PO SCH ×3 (07:43→17:32)
[2019-11-29] MEDS: IPRATROPIUM/ALBUTEROL 0.5-2.5 MG/3 ML AMPUL NEB SCH ×2 (08:22→21:36)
[2019-11-29] MEDS: ASPIRIN 81 MG TABLET, CHEWABLE PO SCH (09:24)
[2019-11-29] MEDS: CETIRIZINE 10 MG TABLET PO SCH (09:24)
[2019-11-29] MEDS: NIFEDIPINE 30 MG TAB.ER.24 PO SCH ×2 (09:24→17:33)
[2019-11-29] MEDS: CLONIDINE HCL 0.1 MG TABLET PO SCH ×4 (09:24→21:09)
[2019-11-29] MEDS: LOSARTAN POTASSIUM 50 MG TABLET PO SCH (09:24)
[2019-11-29] MEDS: DOCUSATE SODIUM 100 MG CAPSULE PO SCH ×2 (09:24→17:33)
[2019-11-29] MEDS ORDERED: AMLODIPINE BESYLATE 10 MG TABLET PO SCH (10:00)
[2019-11-29] MEDS ORDERED: NORMAL SALINE 1000 ML 1,000 ML IV PRN (10:12)
--- NOTE | 2019-11-29 13:06 | PDOC CONSULTATION ---
Consultation Consult Date: 11/29/19 Provider Consulted: HALLIE LIRA Consult reason:: ESRD requiring HD History of Present Illness Admission Date/PCP: 11/28/19 21:58 BHUPENDRA GUZMAN MD History of Present Illness: PRASHANTH REYNOSO is a 74 year old male with history of ESRD on maintenance hemodialysis on TTH S, hypertension, and diabetes who presented in the emergency room last night because of worsening shortness of breath, chest pressure and nausea. His is currently at bedside at the time of this evaluation. His last dialysis was last Friday at [facility] but he did not complete his treatment and completed only 2 hours out of the 4 hours prescribed dialysis. He said he was cramping so he cut his treatment short. Yesterday he presented with above symptoms. He was also found to have elevated blood pressure recorded with 236/99. His initial chest x-ray showed mild interstitial thickening bilaterally but without consolidation or pleural effusion. He complains of constipation so he was given a medicine and had a bowel movement.. He denies any cough, shortness of breath, no fevers. He states that there is some burning or pain when he urinates. He otherwise denies any gross hematuria no history of kidney stones. He does report bilateral feet swelling which was unchanged. He reports that his blood pressure at home has been running elevated usually around 180-200 over 80s. He still makes minimal urine. Although his med list states Lasix, he is really not taking it. Currently I am seeing the patient during dialysis treatment. His blood pressure is still moderately elevated but not as bad as when he came in. He will be monitored very closely. We will plan to do ultrafiltration of about 3 to 4 L during dialysis today. He is otherwise stable and not having any complaints. Past Medical History Cardiac Medical History: Reports: Hyperlipidemia, Hypertension-primary Pulmonary Medical History: Reports: Sleep Apnea Endocrine Medical History: Reports: Diabetes Mellitus Type 2 Renal/ Medical History: Reports: End Stage Renal Disease - On dialysis since 2017 Musculoskeltal Medical History: Reports: Arthritis Hematology Medical History: Reports Anemia of Chronic Kidney Disease Past Surgical History Past Surgical History: Reports: Dialysis Access Surgery AVF, Orthopedic Surgery - left shoulder, Other - Eye surgery Social History Information Source: Patient, Relative Lives with: Family - and 1 child Smoking Status: Never Smoker Electronic Cigarette use?: No Frequency of Alcohol Use: Rare Hx Recreational Drug Use: No Drugs: None Hx Prescription Drug Abuse: No - Advance Directive Resuscitation Status: Full Code Family History Family History: CAD - Mother had heart attack, DM - Brother, Hypertension - Brother Parental Family History Reviewed: Yes Children Family History Reviewed: Yes Sibling(s) Family History Reviewed.: Yes Medication/Allergy Home Medications: Insulin Glargine,Hum.rec.anlog [Lantus] 10 unit SQ BID #0 11/06/15 Calcium Acetate [Phoslo 667 mg Capsule] 667 mg PO MEALS 11/28/19 Doxazosin Mesylate [Cardura 2 mg Tablet] 2 mg PO QPM 11/28/19 Losartan Potassium 100 mg PO DAILY 11/28/19 Nifedipine [Nifedipine ER] 30 mg PO BID 11/28/19 Aspirin [Aspirin 81 mg Chewable Tablet] 81 mg PO DAILY 11/29/19 Atorvastatin Calcium [Lipitor 40 mg Tablet] 20 mg PO QHS 11/29/19 Cetirizine HCl [Zyrtec 10 mg Tablet] 10 mg PO DAILY 11/29/19 Clonidine HCl 0.3 mg PO Q8 11/29/19 Allergies/Adverse Reactions: No Known Allergies Allergy (Verified 06/02/18 13:15) Review of Systems All systems: reviewed and no additional remarkable complaints except as stated Review of Systems: Constitutional: ABSENT: chills, fatigue, fever(s), headache(s), weight gain, weight loss Eyes: ABSENT: visual disturbances Ears: ABSENT: hearing changes Cardiovascular: ABSENT: Pain, dyspnea on exertion, orthropnea, palpitations; admits chest pressure and feet edema Respiratory: ABSENT: cough, hemoptysis; admits worsening shortness of breath Gastrointestinal: ABSENT: abdominal pain, diarrhea, hematemesis, hematochezia, vomiting; reports nausea and constipation upon presentation Genitourinary: ABSENT: Hematuria; admits dysuria Musculoskeletal: ABSENT: joint swelling Integumentary: ABSENT: rash, wounds Neurological: ABSENT: abnormal gait, abnormal speech, confusion, dizziness, focal weakness, numbness, syncope Psychiatric: ABSENT: anxiety, depression Endocrine: ABSENT: cold intolerance, heat intolerance, polydipsia, polyuria Hematologic/Lymphatic: ABSENT: easy bleeding, easy bruising, lymphadenopathy Physical Exam Vital Signs: Temp Pulse Resp BP Pulse Ox 98.3 F 81 16 174/77 H 91 L 11/29/19 07:18 11/29/19 08:24 11/29/19 08:24 11/29/19 07:18 11/29/19 08:24 Intake & Output 11/28/19 11/29/19 11/30/19 06:59 06:59 06:59 Weight 83.9 kg Vitals during dialysis: Blood pressure 185/89, heart rate of 78, blood flow rate of 450 mL/min and dialysate flow rate of 800 mL/min. Exam: General appearance: No acute distress, cooperative, well-developed, well- nourished Head exam: PRESENT: atraumatic, normocephalic Eye exam: PRESENT: Conjunctiva slightly pale, EOMI, PERRLA. ABSENT: conjunctival injection, scleral icterus Mouth exam: PRESENT: moist, neck supple, tongue midline Neck exam: PRESENT: full ROM. ABSENT: carotid bruit, JVD, lymphadenopathy, thyromegaly Respiratory exam: PRESENT: Diminished to auscultation bilaterally. ABSENT: rales, rhonchi, stridor, wheezes Cardiovascular exam: PRESENT: RRR, +S1, +S2. ABSENT: systolic murmur Pulses: PRESENT: normal radial pulses, normal dorsalis pedis pulses GI/Abdominal exam: PRESENT: normal bowel sounds, soft. ABSENT: guarding, mass, tenderness Rectal exam: Deferred Extremities exam: PRESENT: full ROM. Grade 1 bilateral lower extremity pitting edema ABSENT: calf tenderness Musculoskeletal: PRESENT: full ROM. ABSENT: deformity Neurological exam: PRESENT: alert, Awake, Oriented to person, Oriented to place, Oriented to time, reflexes normal, CN II-XII grossly intact. ABSENT: motor sensory deficit Psychiatric exam: PRESENT: appropriate affect, normal mood. ABSENT: homicidal ideation, suicidal ideation Skin exam: PRESENT: intact, dry, warm. ABSENT: rash Results Laboratory Results: 11/29/19 03:21 11/29/19 03:21 11/28/19 11/28/19 11/28/19 17:00 17:00 20:41 WBC 7.5 RBC 3.99 L Hgb 11.9 L Hct 34.4 L MCV 86 MCH 29.9 MCHC 34.7 RDW 14.4 H Plt Count 247 Seg Neutrophils % 75.5 Sodium 138.0 Potassium 4.4 Chloride 98 Carbon Dioxide 25 Anion Gap 15 BUN 26 H Creatinine 7.59 H Est GFR ( Amer) 9 L Glucose 169 H Calcium 10.2 Total Bilirubin 1.2 AST 28 Alkaline Phosphatase 123 Total Protein 8.9 H Albumin 5.0 Urine Color YELLOW Urine Appearance CLEAR Urine pH 8.0 Ur Specific [place] 1.008 Urine Protein >=500 H Urine Glucose (UA) 150 H Urine Ketones NEGATIVE Urine Blood NEGATIVE Urine RBC (Auto) 1 11/29/19 11/29/19 03:21 03:21 WBC 8.6 RBC 3.64 L Hgb 10.6 L Hct 31.3 L MCV 86 MCH 29.2 MCHC 33.9 RDW 14.5 H Plt Count 197 Seg Neutrophils % 83.7 H Sodium 138.5 Potassium 4.2 Chloride 100 Carbon Dioxide 25 Anion Gap 14 BUN 29 H Creatinine 8.34 H Est GFR ( Amer) 8 L Glucose 188 H Calcium 9.4 Total Bilirubin AST Alkaline Phosphatase Total Protein Albumin Urine Color Urine Appearance Urine pH Ur Specific [place] Urine Protein Urine Glucose (UA) Urine Ketones Urine Blood Urine RBC (Auto) 11/28/19 11/28/19 11/29/19 17:00 20:41 03:21 Troponin I 0.035 0.036 0.047 NT-Pro-B Natriuret Pep 7000 H Impressions: Chest X-Ray 11/28/19 16:28 IMPRESSION: Mild interstitial thickening bilaterally. No consolidation or pleural effusion. Assessment & Plan - Diagnosis (1) End stage renal failure on dialysis Is this a current diagnosis for this admission?: Yes Plan: We will do dialysis today for 3 hours, using the patient's AV fistula, with 2 potassium bath, blood flow rate of 450 mL per minute, dialysate flow rate of 800 mL per minute, ultrafiltration 3 to 4 L as tolerated, no heparin and no Procrit. Patient will be monitored throughout dialysis treatment and adjust ultrafiltration accordingly depending on how he tolerates it. Advised patient to be more compliant with dialysis prescription and to avoid doing his treatment short at [facility] outpatient dialysis unit. This will prevent episodes like this with pulmonary congestion. (2) Congestive heart failure Qualifiers: Heart failure type: unspecified Heart failure chronicity: acute on chronic Qualified Code(s): I50.9 - Heart failure, unspecified Is this a current diagnosis for this admission?: Yes Plan: Patient with grade 2/4 mild to moderate diastolic dysfunction with normal left ventricular systolic function based on echocardiogram on 11/02/2015. (3) Hypertensive urgency Is this a current diagnosis for this admission?: Yes Plan: Blood pressure currently improved with modification of his blood pressure medication by the hospitalist service. His clonidine was increased to 0.2 mg 4 times a day from 3 times a day and he was started on hydralazine 25 mg p.o. every 6 hours. If blood pressure continues to be elevated another option is to increase nifedipine to 60 mg every 12 hours. (4) Anemia in chronic kidney disease (CKD) Is this a current diagnosis for this admission?: Yes Plan: No need of Retacrit at this time. (5) Diabetes Is this a current diagnosis for this admission?: Yes (6) Pulmonary hypertension Is this a current diagnosis for this admission?: Yes Plan: Moderate based on echocardiogram in 2016. (7) Constipation Is this a current diagnosis for this admission?: Yes - Notes Notes: Thank you very much for this consultation. - Time Time Spent: 50 to 70 Minutes
--- NOTE | 2019-11-29 13:10 | PDOC PROGRESS REPORT ---
Subjective Progress Note for:: 11/29/19 Subjective:: No adverse events overnight. Blood pressure has improved some from admission. He is on oxygen and is comfortable at rest. He admits to dietary indiscretion. Reason For Visit: SOB VOLUME OVERLOAD ESRD Physical Exam Vital Signs: Temp Pulse Resp BP Pulse Ox 98.0 F 76 16 163/72 H 90 L 11/29/19 11:43 11/29/19 11:43 11/29/19 11:43 11/29/19 11:43 11/29/19 11:43 Intake & Output 11/28/19 11/29/19 11/30/19 06:59 06:59 06:59 Intake Total 480 Output Total 100 Balance 380 Weight 83.9 kg General appearance: PRESENT: no acute distress, cooperative, disheveled Respiratory exam: PRESENT: crackles - Bibasilar, symmetrical, unlabored. ABSENT: accessory muscle use, chest wall tenderness, prolonged expiratory phas, retraction, rhonchi, tachypnea, wheezes Cardiovascular exam: PRESENT: RRR, +S1, +S2 Pulses: PRESENT: normal carotid pulses Vascular exam: PRESENT: normal capillary refill GI/Abdominal exam: PRESENT: normal bowel sounds, soft. ABSENT: distended, guarding, rebound, tenderness Extremities exam: ABSENT: clubbing, pedal edema Musculoskeletal exam: PRESENT: normal inspection. ABSENT: deformity Neurological exam: PRESENT: alert, awake, oriented to person, oriented to place, oriented to situation Psychiatric exam: PRESENT: appropriate affect, normal mood Skin exam: PRESENT: dry, warm Results Laboratory Results: 11/29/19 03:21 11/29/19 03:21 11/28/19 11/28/19 11/28/19 17:00 17:00 20:41 WBC 7.5 RBC 3.99 L Hgb 11.9 L Hct 34.4 L MCV 86 MCH 29.9 MCHC 34.7 RDW 14.4 H Plt Count 247 Seg Neutrophils % 75.5 Sodium 138.0 Potassium 4.4 Chloride 98 Carbon Dioxide 25 Anion Gap 15 BUN 26 H Creatinine 7.59 H Est GFR ( Amer) 9 L Glucose 169 H Calcium 10.2 Total Bilirubin 1.2 AST 28 Alkaline Phosphatase 123 Total Protein 8.9 H Albumin 5.0 Urine Color YELLOW Urine Appearance CLEAR Urine pH 8.0 Ur Specific [place] 1.008 Urine Protein >=500 H Urine Glucose (UA) 150 H Urine Ketones NEGATIVE Urine Blood NEGATIVE Urine RBC (Auto) 1 11/29/19 11/29/19 03:21 03:21 WBC 8.6 RBC 3.64 L Hgb 10.6 L Hct 31.3 L MCV 86 MCH 29.2 MCHC 33.9 RDW 14.5 H Plt Count 197 Seg Neutrophils % 83.7 H Sodium 138.5 Potassium 4.2 Chloride 100 Carbon Dioxide 25 Anion Gap 14 BUN 29 H Creatinine 8.34 H Est GFR ( Amer) 8 L Glucose 188 H Calcium 9.4 Total Bilirubin AST Alkaline Phosphatase Total Protein Albumin Urine Color Urine Appearance Urine pH Ur Specific [place] Urine Protein Urine Glucose (UA) Urine Ketones Urine Blood Urine RBC (Auto) 11/28/19 11/28/19 11/29/19 17:00 20:41 03:21 Troponin I 0.035 0.036 0.047 NT-Pro-B Natriuret Pep 7000 H Impressions: Chest X-Ray 11/28/19 16:28 IMPRESSION: Mild interstitial thickening bilaterally. No consolidation or pleural effusion. Assessment and Plan - Diagnosis (1) Anemia in chronic kidney disease (CKD) Qualifiers: Chronic kidney disease stage: on chronic dialysis Qualified Code(s): N18.6 - End stage renal disease; D63.1 - Anemia in chronic kidney disease; Z99.2 - Dependence on renal dialysis Is this a current diagnosis for this admission?: Yes Plan: Nephrology is consulted, anticipate that he will have a fair bit of fluid drawn off today. (2) Congestive heart failure Qualifiers: Heart failure type: unspecified Heart failure chronicity: acute on chronic Qualified Code(s): I50.9 - Heart failure, unspecified Is this a current diagnosis for this admission?: Yes Plan: Due to his hypertensive urgency. We will continue his home medications and blood pressure control. Dialysis for fluid removal. (3) End stage renal failure on dialysis Is this a current diagnosis for this admission?: Yes Plan: As noted above (4) Hypertensive urgency Is this a current diagnosis for this admission?: Yes Plan: Home medications. PRN hydralazine. We will follow-up any recommendations for adjusting his regimen from nephrology. Strongly encouraged to follow his dietary restrictions and any fluid restrictions. - Time Time Spent with patient: 15-24 minutes
[2019-11-29] MEDS: DOXAZOSIN MESYLATE 2 MG TABLET PO SCH (17:33)
[2019-11-29] MEDS: ATORVASTATIN CALCIUM 20 MG TABLET PO SCH (21:09)
[2019-11-30] MEDS: HEPARIN SOD (PORCINE) 5,000 UNIT/ML 1 ML VIAL SUBCUT SCH ×3 (05:21→21:49)
[2019-11-30] MEDS: HYDRALAZINE HCL 25 MG TABLET PO SCH ×3 (05:21→17:31)
[2019-11-30] MEDS: INSULIN LISPRO 100 UNIT/ML 3 ML VIAL SUBCUT SCH ×3 (06:05→17:32)
[2019-11-30] MEDS: IPRATROPIUM/ALBUTEROL 0.5-2.5 MG/3 ML AMPUL NEB SCH ×2 (08:17→20:25)
[2019-11-30] MEDS: CETIRIZINE 10 MG TABLET PO SCH (09:28)
[2019-11-30] MEDS: CLONIDINE HCL 0.1 MG TABLET PO SCH ×4 (09:28→21:48)
[2019-11-30] MEDS: DOCUSATE SODIUM 100 MG CAPSULE PO SCH ×2 (09:28→17:32)
[2019-11-30] MEDS: NIFEDIPINE 30 MG TAB.ER.24 PO SCH ×2 (09:28→17:31)
[2019-11-30] MEDS: CALCIUM ACETATE 667 MG CAPSULE PO SCH ×3 (09:28→17:32)
[2019-11-30] MEDS: ASPIRIN 81 MG TABLET, CHEWABLE PO SCH (09:28)
[2019-11-30] MEDS: LOSARTAN POTASSIUM 50 MG TABLET PO SCH (09:29)
--- NOTE | 2019-11-30 16:41 | PDOC PROGRESS REPORT ---
Subjective Progress Note for:: 11/30/19 Subjective:: Patient is feeling better Reason For Visit: SOB VOLUME OVERLOAD ESRD Physical Exam Vital Signs: Temp Pulse Resp BP Pulse Ox 97.8 F 84 18 180/80 H 96 11/30/19 12:00 11/30/19 14:00 11/30/19 12:00 11/30/19 12:00 11/30/19 12:00 Intake & Output 11/29/19 11/30/19 12/01/19 06:59 06:59 06:59 Intake Total 930 630 Output Total 3300 Balance -2370 630 Weight 83.9 kg 84 kg General appearance: PRESENT: no acute distress, well-developed, well-nourished Head exam: PRESENT: atraumatic, normocephalic Eye exam: PRESENT: conjunctiva pink, EOMI. ABSENT: scleral icterus Mouth exam: PRESENT: tongue midline Neck exam: ABSENT: carotid bruit, JVD, lymphadenopathy, thyromegaly Respiratory exam: PRESENT: clear to auscultation lucia. ABSENT: rales, rhonchi, wheezes Cardiovascular exam: PRESENT: RRR, +S1, +S2. ABSENT: diastolic murmur, rubs, systolic murmur GI/Abdominal exam: PRESENT: normal bowel sounds, soft. ABSENT: distended, guarding, mass, organolmegaly, rebound, tenderness Rectal exam: PRESENT: deferred Extremities exam: PRESENT: full ROM, other - Left upper extremity fistula. AB SENT: calf tenderness, clubbing, pedal edema Neurological exam: PRESENT: alert, awake, oriented to person, oriented to place, oriented to time, oriented to situation, CN II-XII grossly intact. ABSENT: motor sensory deficit Psychiatric exam: PRESENT: appropriate affect, normal mood. ABSENT: homicidal ideation, suicidal ideation Skin exam: PRESENT: dry, intact, warm. ABSENT: cyanosis, rash Results Laboratory Results: 11/29/19 03:21 11/29/19 03:21 11/28/19 11/28/19 11/29/19 17:00 20:41 03:21 Troponin I 0.035 0.036 0.047 NT-Pro-B Natriuret Pep 7000 H Impressions: Chest X-Ray 11/28/19 16:28 IMPRESSION: Mild interstitial thickening bilaterally. No consolidation or pleural effusion. Assessment and Plan - Diagnosis (1) Anemia in chronic kidney disease (CKD) Qualifiers: Chronic kidney disease stage: on chronic dialysis Qualified Code(s): N18.6 - End stage renal disease; D63.1 - Anemia in chronic kidney disease; Z99.2 - Dependence on renal dialysis Is this a current diagnosis for this admission?: Yes Plan: Continue ZOFIA (2) Congestive heart failure Qualifiers: Heart failure type: unspecified Heart failure chronicity: acute on chronic Qualified Code(s): I50.9 - Heart failure, unspecified Is this a current diagnosis for this admission?: Yes Plan: We will continue his home medications and blood pressure control. Dialysis for fluid removal. (3) End stage renal failure on dialysis Is this a current diagnosis for this admission?: Yes (4) Hypertensive urgency Is this a current diagnosis for this admission?: Yes Plan: Continue his home meds as needed
[2019-11-30] MEDS: DOXAZOSIN MESYLATE 2 MG TABLET PO SCH (17:32)
[2019-11-30] MEDS: ATORVASTATIN CALCIUM 20 MG TABLET PO SCH (21:49)
[2019-12-01] MEDS: INSULIN LISPRO 100 UNIT/ML 3 ML VIAL SUBCUT SCH ×3 (00:45→12:01)
[2019-12-01] MEDS: HYDRALAZINE HCL 25 MG TABLET PO SCH ×3 (01:01→12:02)
--- NOTE | 2019-12-01 01:14 | PDOC PROGRESS REPORT ---
Subjective Progress Note for:: 11/30/19 Subjective:: She is doing fine and his breathing is better. However his blood pressure continues to be elevated. Reason For Visit: SOB VOLUME OVERLOAD ESRD Physical Exam Vital Signs: Temp Pulse Resp BP Pulse Ox 97.8 F 91 18 180/80 H 96 11/30/19 12:00 11/30/19 12:00 11/30/19 12:00 11/30/19 12:00 11/30/19 12:00 Intake & Output 11/29/19 11/30/19 12/01/19 06:59 06:59 06:59 Intake Total 930 630 Output Total 3300 Balance -2370 630 Weight 83.9 kg 84 kg Exam: General appearance: PRESENT: no acute distress, cooperative, well-developed, well-nourished Head exam: PRESENT: atraumatic, normocephalic Eye exam: PRESENT: conjunctiva pink, PERRLA. ABSENT: scleral icterus Neck exam: ABSENT: JVD Respiratory exam: PRESENT: Normal breath sounds. ABSENT: crackles, rales, rhonchi, unlabored, wheezes Cardiovascular exam: PRESENT: Regular rate rhythm -+S1, +S2. ABSENT: diastolic murmur, systolic murmur GI/Abdominal exam: PRESENT: normal bowel sounds, soft. ABSENT: guarding, mass, tenderness Extremities exam: Slightly improved grade 1 bilateral lower extremity pitting edema Neurological exam: PRESENT: alert, awake, oriented to person, place and time. Skin exam: PRESENT: dry, warm, Results Laboratory Results: 11/29/19 03:21 11/29/19 03:21 11/28/19 11/28/19 11/29/19 17:00 20:41 03:21 Troponin I 0.035 0.036 0.047 NT-Pro-B Natriuret Pep 7000 H Impressions: Chest X-Ray 11/28/19 16:28 IMPRESSION: Mild interstitial thickening bilaterally. No consolidation or pleural effusion. Assessment & Plan - Diagnosis (1) Hypertensive urgency Is this a current diagnosis for this admission?: Yes Plan: Increase nifedipine to 60 mg p.o. twice daily. (2) End stage renal failure on dialysis Is this a current diagnosis for this admission?: Yes Plan: Dialysis tomorrow. (3) Congestive heart failure Qualifiers: Heart failure type: unspecified Heart failure chronicity: acute on chronic Qualified Code(s): I50.9 - Heart failure, unspecified Is this a current diagnosis for this admission?: Yes Plan: Currently improved and compensated. (4) Anemia in chronic kidney disease (CKD) Qualifiers: Chronic kidney disease stage: on chronic dialysis Qualified Code(s): N18.6 - End stage renal disease; D63.1 - Anemia in chronic kidney disease; Z99.2 - Dependence on renal dialysis Is this a current diagnosis for this admission?: Yes Plan: Retacrit as needed. (5) Diabetes Is this a current diagnosis for this admission?: Yes (6) Pulmonary hypertension Is this a current diagnosis for this admission?: Yes Plan: Moderate. (7) Constipation Is this a current diagnosis for this admission?: Yes - Time Time with patient: 15-25 minutes
[2019-12-01] MEDS ORDERED: NORMAL SALINE 1000 ML 1,000 ML IV PRN (05:00)
[2019-12-01 05:26] LABS: ABSOLUTE EOSINOPHILS # (AUTO) 0.2 10^3/uL (0.0-0.6); ABSOLUTE LYMPHOCYTES (AUTO) 0.7 10^3/uL (0.5-4.7); ABSOLUTE MONOCYTES (AUTO) 0.7 10^3/uL (0.1-1.4); BASOPHILS % (AUTO) 0.8 % (0-2); EOSINOPHILS % (AUTO) 4.2 % (0-6); HEMATOCRIT 31.1 % (37.9-51.0); HEMOGLOBIN 10.7 g/dL (13.5-17.0); LYMPHOCYTES % (AUTO) 12.3 % (13-45); MEAN CORPUSCULAR HEMOGLOBIN 29.7 pg (27.0-33.4); MEAN CORPUSCULAR HGB CONC 34.5 g/dL (32.0-36.0); MEAN CORPUSCULAR VOLUME 86 fl (80-97); MONOCYTES % (AUTO) 12.4 % (3-13); PLATELET COUNT 217 10^3/uL (150-450); RED BLOOD COUNT 3.61 10^6/uL (4.35-5.55); RED CELL DISTRIBUTION WIDTH 14.7 % (11.5-14.0); SEGMENTED NEUTROPHILS % (AUTO) 70.3 % (42-78); TOTAL CELLS COUNTED % (AUTO) 100 %; WHITE BLOOD COUNT 5.7 10^3/uL (4.0-10.5)
[2019-12-01 05:43] LABS: ANION GAP 15 (5-19); BLOOD UREA NITROGEN 35 mg/dL (7-20); CALCIUM 9.6 mg/dL (8.4-10.2); CARBON DIOXIDE 26 mmol/L (22-30); CHLORIDE 95 mmol/L (98-107); GLUCOSE 213 mg/dL (75-110); POTASSIUM 3.9 mmol/L (3.6-5.0)
[2019-12-01] MEDS: HEPARIN SOD (PORCINE) 5,000 UNIT/ML 1 ML VIAL SUBCUT SCH (05:59)
[2019-12-01] MEDS: IPRATROPIUM/ALBUTEROL 0.5-2.5 MG/3 ML AMPUL NEB SCH (08:30)
[2019-12-01] MEDS: CALCIUM ACETATE 667 MG CAPSULE PO SCH ×2 (10:00→12:03)
[2019-12-01] MEDS: LOSARTAN POTASSIUM 50 MG TABLET PO SCH (12:01)
[2019-12-01] MEDS: DOCUSATE SODIUM 100 MG CAPSULE PO SCH (12:02)
[2019-12-01] MEDS: ASPIRIN 81 MG TABLET, CHEWABLE PO SCH (12:02)
[2019-12-01] MEDS: NIFEDIPINE 30 MG TAB.ER.24 PO SCH (12:02)
[2019-12-01] MEDS: CETIRIZINE 10 MG TABLET PO SCH (12:03)
[2019-12-01] MEDS: CLONIDINE HCL 0.1 MG TABLET PO SCH (12:03)
[2019-12-01 14:03] VITALS: BP 147/67
[2019-12-01] MEDS ORDERED: NIFEDIPINE 10 MG CAPSULE PO ONE (14:30)
--- NOTE | 2019-12-01 17:12 | PDOC DISCHARGE SUMMARY ---
Impression - Admit/DC Date/PCP Admission Date/Primary Care Provider: 11/28/19 21:58 BHUPENDRA GUZMAN MD - Discharge Diagnosis (1) Anemia in chronic kidney disease (CKD) Is this a current diagnosis for this admission?: Yes (2) Congestive heart failure Is this a current diagnosis for this admission?: Yes (3) End stage renal failure on dialysis Is this a current diagnosis for this admission?: Yes (4) Hypertensive urgency Is this a current diagnosis for this admission?: Yes - Additional Information Resuscitation Status: Full Code Discharge Activity: Activity As Tolerated, Balance Activity w/Rest, Weigh Daily Referrals: BHUPENDRA GUZMAN MD [Primary Care Provider] - 12/08/19 10:00 am (F/u BP and adjust meds as needed) Prescriptions: Hydralazine HCl [Apresoline 25 mg Tablet] 50 mg PO Q8 #180 tablet Nifedipine [Procardia XL 30 mg Tablet] 60 mg PO BID #120 tab.er.24 Home Medications: Insulin Glargine,Hum.rec.anlog [Lantus] 10 unit SQ BID #0 11/06/15 Calcium Acetate [Phoslo 667 mg Capsule] 667 mg PO MEALS 11/28/19 Doxazosin Mesylate [Cardura 2 mg Tablet] 2 mg PO QPM 11/28/19 Losartan Potassium 100 mg PO DAILY 11/28/19 Aspirin [Aspirin 81 mg Chewable Tablet] 81 mg PO DAILY 11/29/19 Atorvastatin Calcium [Lipitor 40 mg Tablet] 20 mg PO QHS 11/29/19 Cetirizine HCl [Zyrtec 10 mg Tablet] 10 mg PO DAILY 11/29/19 Clonidine HCl 0.3 mg PO Q8 11/29/19 Hydralazine HCl [Apresoline 25 mg Tablet] 50 mg PO Q8 #180 tablet 12/01/19 Nifedipine [Procardia XL 30 mg Tablet] 60 mg PO BID #120 tab.er.24 12/01/19 History of Present Illiness History of Present Illness: PRASHANTH REYNOSO is a 74 year old male Patient was admitted with nausea, abdominal pain and chest pressure. He was found to be in poorly controlled hypertension in the ED. As such he was admitted for further evaluation and management. Please see admitting history and physical as well as consultation report by nephrology for full details. Hospital Course Hospital Course: Patient was admitted to the medical unit for further management. He does have a history of end-stage renal disease. He was felt that patient was fluid overloaded complicated by lifestyle, dietary and medication noncompliance. He was seen by nephrology and patient was dialyzed appropriately while in hospital. His blood pressure was suboptimally controlled and his medications were changed and will need still further management as outpatient. He has otherwise remained hemodynamically stable. There is no recent echocardiogram on file but this could be pursued as outpatient. BNP was elevated but this could have been consistent with his end- stage renal disease. Troponins were marginally elevated likely from the ESRD. Suggest follow-up with recruiting specialist and PCP for further management and referral as appropriate Physical Exam Vital Signs: Temp Pulse Resp BP Pulse Ox 98.0 F 94 16 183/75 H 95 12/01/19 12:00 12/01/19 12:00 12/01/19 12:00 12/01/19 12:00 12/01/19 12:00 Intake & Output 11/30/19 12/01/19 12/02/19 06:59 06:59 06:59 Intake Total 930 1210 120 Output Total 3300 275 Balance -2370 935 120 Weight 84 kg 84 kg General appearance: PRESENT: no acute distress, well-nourished Head exam: PRESENT: atraumatic, normocephalic Eye exam: PRESENT: conjunctiva pink, EOMI, PERRLA. ABSENT: scleral icterus Ear exam: PRESENT: normal external ear exam Mouth exam: PRESENT: moist, tongue midline Neck exam: ABSENT: carotid bruit, JVD, lymphadenopathy, thyromegaly Respiratory exam: PRESENT: clear to auscultation lucia. ABSENT: rales, rhonchi, wheezes Cardiovascular exam: PRESENT: RRR. ABSENT: diastolic murmur, rubs, systolic murmur Pulses: PRESENT: normal dorsalis pedis pul Vascular exam: PRESENT: normal capillary refill GI/Abdominal exam: PRESENT: normal bowel sounds, soft. ABSENT: distended, guarding, mass, organolmegaly, rebound, tenderness Rectal exam: PRESENT: deferred Extremities exam: PRESENT: full ROM. ABSENT: calf tenderness, clubbing, pedal edema Neurological exam: PRESENT: alert, awake, oriented to person, oriented to place, oriented to time, oriented to situation, CN II-XII grossly intact. ABSENT: motor sensory deficit Psychiatric exam: PRESENT: appropriate affect, normal mood. ABSENT: homicidal ideation, suicidal ideation Skin exam: PRESENT: dry, intact, warm. ABSENT: cyanosis, rash Results Laboratory Results: WBC 5.7 10^3/uL (4.0-10.5) 12/01/19 04:59 RBC 3.61 10^6/uL (4.35-5.55) L 12/01/19 04:59 Hgb 10.7 g/dL (13.5-17.0) L 12/01/19 04:59 Hct 31.1 % (37.9-51.0) L 12/01/19 04:59 MCV 86 fl (80-97) 12/01/19 04:59 MCH 29.7 pg (27.0-33.4) 12/01/19 04:59 MCHC 34.5 g/dL (32.0-36.0) 12/01/19 04:59 RDW 14.7 % (11.5-14.0) H 12/01/19 04:59 Plt Count 217 10^3/uL (150-450) 12/01/19 04:59 Lymph % (Auto) 12.3 % (13-45) L 12/01/19 04:59 [place] % (Auto) 12.4 % (3-13) 12/01/19 04:59 Eos % (Auto) 4.2 % (0-6) 12/01/19 04:59 Baso % (Auto) 0.8 % (0-2) 12/01/19 04:59 Absolute Neuts (auto) 4.0 10^3/uL (1.7-8.2) 12/01/19 04:59 Absolute Lymphs (auto) 0.7 10^3/uL (0.5-4.7) 12/01/19 04:59 Absolute Monos (auto) 0.7 10^3/uL (0.1-1.4) 12/01/19 04:59 Absolute Eos (auto) 0.2 10^3/uL (0.0-0.6) 12/01/19 04:59 Absolute Basos (auto) 0.0 10^3/uL (0.0-0.2) 12/01/19 04:59 Seg Neutrophils % 70.3 % (42-78) 12/01/19 04:59 Sodium 136.2 mmol/L (137-145) L 12/01/19 04:59 Potassium 3.9 mmol/L (3.6-5.0) 12/01/19 04:59 Chloride 95 mmol/L (98-107) L 12/01/19 04:59 Carbon Dioxide 26 mmol/L (22-30) 12/01/19 04:59 Anion Gap 15 (5-19) 12/01/19 04:59 BUN 35 mg/dL (7-20) H 12/01/19 04:59 Creatinine 9.01 mg/dL (0.52-1.25) H 12/01/19 04:59 Est GFR ( Amer) 7 (>60) L 12/01/19 04:59 Est GFR (MDRD) Non-Af 6 (>60) L 12/01/19 04:59 Glucose 213 mg/dL (75-110) H 12/01/19 04:59 POC Glucose 169 mg/dL (70-110) H 12/01/19 11:11 Calcium 9.6 mg/dL (8.4-10.2) 12/01/19 04:59 Total Bilirubin 1.2 mg/dL (0.2-1.3) 11/28/19 17:00 Direct Bilirubin 0.3 mg/dL (0.0-0.4) 11/28/19 17:00 Neonat Total Bilirubin Not Reportable 11/28/19 17:00 Neonat Direct Bilirubin Not Reportable 11/28/19 17:00 Neonat Indirect Bili Not Reportable 11/28/19 17:00 AST 28 U/L (17-59) 11/28/19 17:00 ALT 28 U/L (<50) 11/28/19 17:00 Alkaline Phosphatase 123 U/L (38-126) 11/28/19 17:00 Troponin I 0.047 ng/mL 11/29/19 03:21 NT-Pro-B Natriuret Pep 7000 pg/mL (<125) H 11/28/19 17:00 Total Protein 8.9 g/dL (6.3-8.2) H 11/28/19 17:00 Albumin 5.0 g/dL (3.5-5.0) 11/28/19 17:00 Urine Color YELLOW 11/28/19 20:41 Urine Appearance CLEAR 11/28/19 20:41 Urine pH 8.0 (5.0-9.0) 11/28/19 20:41 Ur Specific [place] 1.008 11/28/19 20:41 Urine Protein >=500 mg/dL (NEGATIVE) H 11/28/19 20:41 Urine Glucose (UA) 150 mg/dL (NEGATIVE) H 11/28/19 20:41 Urine Ketones NEGATIVE mg/dL (NEGATIVE) 11/28/19 20:41 Urine Blood NEGATIVE (NEGATIVE) 11/28/19 20:41 Urine Nitrite (Reflex) NEGATIVE (NEGATIVE) 11/28/19 20:41 Urine Bilirubin NEGATIVE (NEGATIVE) 11/28/19 20:41 Urine Urobilinogen NEGATIVE mg/dL (<2.0) 11/28/19 20:41 Leukocyte Esterase Rfl NEGATIVE (NEGATIVE) 11/28/19 20:41 Urine RBC (Auto) 1 /HPF 11/28/19 20:41 Urine WBC (Reflex) 1 /HPF 11/28/19 20:41 Squamous Epi Cells Auto <1 /HPF 11/28/19 20:41 Urine Mucus (Auto) RARE /LPF 11/28/19 20:41 Urine Ascorbic Acid NEGATIVE (NEGATIVE) 11/28/19 20:41 Influenza A (Rapid) NEGATIVE (NEGATIVE) 11/28/19 19:47 Influenza B (Rapid) NEGATIVE (NEGATIVE) 11/28/19 19:47 11/28/19 11/28/19 11/29/19 17:00 20:41 03:21 Troponin I 0.035 0.036 0.047 NT-Pro-B Natriuret Pep 7000 H Impressions: Chest X-Ray 11/28/19 16:28 IMPRESSION: Mild interstitial thickening bilaterally. No consolidation or pleural effusion. Plan Health Concerns: follow-up with PCP for medication management, reevaluation of antihypertensives and possible referral to cardiology for further evaluation. And advised on need to be compliant with diet, medications as well as lifestyle modifications Time Spent: Greater than 30 Minutes Stroke Is this a Stroke Patient?: No Acute Heart Failure - Is this a Heart Failure Patient?: No
--- NOTE | 2019-12-01 23:14 | PDOC PROGRESS REPORT ---
Subjective Progress Note for:: 12/01/19 Subjective:: I am seeing the patient during dialysis this morning. He is very comfortable and stable. His blood pressure has really been improved since admission. She denies any complaints at this time. Reason For Visit: SOB VOLUME OVERLOAD ESRD Physical Exam Vital Signs: Temp Pulse Resp BP Pulse Ox 97.9 F 87 18 169/77 H 100 12/01/19 04:42 12/01/19 08:30 12/01/19 08:30 12/01/19 04:42 12/01/19 08:30 Intake & Output 11/30/19 12/01/19 12/02/19 06:59 06:59 06:59 Intake Total 930 1210 Output Total 3300 275 Balance -2370 935 Weight 84 kg 84 kg Vitals during dialysis: Blood pressure 175/85, heart rate of 92, blood flow rate of 400 mL/min and dialysate flow rate of 800 mL/min. Exam: General appearance: PRESENT: no acute distress, cooperative, well-developed, well-nourished Head exam: PRESENT: atraumatic, normocephalic Eye exam: PRESENT: conjunctiva pink, PERRLA. ABSENT: scleral icterus Neck exam: ABSENT: JVD Respiratory exam: PRESENT: Normal breath sounds. ABSENT: crackles, rales, rhonchi, unlabored, wheezes Cardiovascular exam: PRESENT: Regular rate rhythm -+S1, +S2. ABSENT: diastolic murmur, systolic murmur GI/Abdominal exam: PRESENT: normal bowel sounds, soft. ABSENT: guarding, mass, tenderness Extremities exam: ABSENT: No edema Neurological exam: PRESENT: alert, awake, oriented to person, place and time. Skin exam: PRESENT: dry, warm, Results Laboratory Results: 12/01/19 04:59 12/01/19 04:59 12/01/19 12/01/19 04:59 04:59 WBC 5.7 RBC 3.61 L Hgb 10.7 L Hct 31.1 L MCV 86 MCH 29.7 MCHC 34.5 RDW 14.7 H Plt Count 217 Seg Neutrophils % 70.3 Sodium 136.2 L Potassium 3.9 Chloride 95 L Carbon Dioxide 26 Anion Gap 15 BUN 35 H Creatinine 9.01 H Est GFR ( Amer) 7 L Glucose 213 H Calcium 9.6 11/28/19 11/28/1911/28/20 17:00 20:41 03:21 Troponin I 0.035 0.036 0.047 NT-Pro-B Natriuret Pep 7000 H Impressions: Chest X-Ray 11/28/19 16:28 IMPRESSION: Mild interstitial thickening bilaterally. No consolidation or pleural effusion. Assessment & Plan - Diagnosis (1) End stage renal failure on dialysis Is this a current diagnosis for this admission?: Yes Plan: We will do dialysis today for 3 hours, using the patient's AV fistula, with 3 potassium bath, blood flow rate of 400 mL per minute, dialysate flow rate of 800 mL per minute, ultrafiltration 2 L as tolerated, no heparin and no Procrit. Patient being monitored throughout dialysis treatment. (2) Hypertensive urgency Is this a current diagnosis for this admission?: Yes Plan: Increased nifedipine to 60 mg p.o. twice daily. Continue current blood pressure regimen. (3) Congestive heart failure Qualifiers: Heart failure type: unspecified Heart failure chronicity: acute on chronic Qualified Code(s): I50.9 - Heart failure, unspecified Is this a current diagnosis for this admission?: Yes Plan: Currently improved and compensated. (4) Anemia in chronic kidney disease (CKD) Qualifiers: Chronic kidney disease stage: on chronic dialysis Qualified Code(s): N18.6 - End stage renal disease; D63.1 - Anemia in chronic kidney disease; Z99.2 - Dependence on renal dialysis Is this a current diagnosis for this admission?: Yes Plan: Retacrit as needed. (5) Diabetes Is this a current diagnosis for this admission?: Yes (6) Pulmonary hypertension Is this a current diagnosis for this admission?: Yes Plan: Moderate. (7) Constipation Is this a current diagnosis for this admission?: Yes - Notes Notes: From nephrology standpoint I think patient can be discharged home today. Milla mathewsussed with Dr. Cervantes. - Time Time with patient: 15-25 minutes
== END 2019-12-01 14:44 | disposition home or self-care (01) | DRG 291 ==
LOC: ER 15:59 → EH 21:58 → OBSVTOIN 21:58 → 4N 23:26
PROVIDERS: ADMIT Internal Medicine; ATTEND Internal Medicine
PROC: 5A1D70Z Performance of Urinary Filtration, Intermittent, Less than 6 Hours Per Day (ICD-10-PCS; principal; 2019-11-29)
PROC: 5A1D70Z Performance of Urinary Filtration, Intermittent, Less than 6 Hours Per Day (ICD-10-PCS; 2019-12-01)
DX: I13.2 Hypertensive heart and chronic kidney disease with heart failure and with stage 5 chronic kidney disease, or end stage renal disease (principal); I50.33 Acute on chronic diastolic (congestive) heart failure; N18.6 End stage renal disease; E11.22 Type 2 diabetes mellitus with diabetic chronic kidney disease; E87.5 Hyperkalemia; I16.0 Hypertensive urgency; E78.5 Hyperlipidemia, unspecified; M19.90 Unspecified osteoarthritis, unspecified site; D63.1 Anemia in chronic kidney disease; G47.30 Sleep apnea, unspecified; R79.89 Other specified abnormal findings of blood chemistry; I27.20 Pulmonary hypertension, unspecified; Z79.4 Long term (current) use of insulin; Z99.2 Dependence on renal dialysis; Z91.14 Patient's other noncompliance with medication regimen; Z79.82 Long term (current) use of aspirin; Z79.899 Other long term (current) drug therapy
CPT/HCPCS: 36415; 71046; 80048; 80053; 81001; 82962; 83880; 84484; 85025; 87804; 93005; 93010; 94640; 94799; 96374; 96375; 99284; J0360; J1644; J1815; J1940; J2405; J3490; J7620

== ENCOUNTER 2019-12-06 12:13 | Emergency (ER) | payer MEDICARE ==
--- NOTE | 2019-12-06 13:38 | RADIOLOGY REPORT (SQ) ---
EXAM DESCRIPTION: KUB/ABDOMEN (SINGLE VIEW) COMPLETED DATE/TIME: 12/06/2019 1:22 pm REASON FOR STUDY: constipation COMPARISON: None. NUMBER OF VIEWS: One view. TECHNIQUE: Supine radiographic image of the abdomen acquired. LIMITATIONS: None. FINDINGS: BOWEL GAS PATTERN: Normal bowel gas pattern. No dilated loops. CONSTIPATION: mild CALCIFICATIONS: No suspicious calcifications. SOFT TISSUES: No gross mass or suggestion of organomegaly. HARDWARE: None in the abdomen. BONES: No acute fracture. No worrisome bone lesions. OTHER: No other significant finding. IMPRESSION: NO RADIOGRAPHIC EVIDENCE FOR ACUTE ABDOMINAL DISEASE. Mild constipation. TECHNICAL DOCUMENTATION: JOB ID: [id number] [id number] [employer]- All Rights Reserved Reading location - IP/workstation name: [email or web address]
[2019-12-06 13:53] LABS: ABSOLUTE BASOPHILS # (AUTO) 0.1 10^3/uL (0.0-0.2); ABSOLUTE EOSINOPHILS # (AUTO) 0.2 10^3/uL (0.0-0.6); ABSOLUTE LYMPHOCYTES (AUTO) 0.9 10^3/uL (0.5-4.7); ABSOLUTE MONOCYTES (AUTO) 0.7 10^3/uL (0.1-1.4); ABSOLUTE NEUT (AUTO) 4.2 10^3/uL (1.7-8.2); BASOPHILS % (AUTO) 1.1 % (0-2); EOSINOPHILS % (AUTO) 3.1 % (0-6); HEMATOCRIT 32.4 % (37.9-51.0); HEMOGLOBIN 11.1 g/dL (13.5-17.0); LYMPHOCYTES % (AUTO) 14.8 % (13-45); MEAN CORPUSCULAR HEMOGLOBIN 29.3 pg (27.0-33.4); MEAN CORPUSCULAR HGB CONC 34.1 g/dL (32.0-36.0); MEAN CORPUSCULAR VOLUME 86 fl (80-97); MONOCYTES % (AUTO) 12.3 % (3-13); PLATELET COUNT 266 10^3/uL (150-450); RED BLOOD COUNT 3.77 10^6/uL (4.35-5.55); RED CELL DISTRIBUTION WIDTH 14.6 % (11.5-14.0); SEGMENTED NEUTROPHILS % (AUTO) 68.7 % (42-78); TOTAL CELLS COUNTED % (AUTO) 100 %; WHITE BLOOD COUNT 6.1 10^3/uL (4.0-10.5)
[2019-12-06 14:20] LABS: ALBUMIN 4.4 g/dL (3.5-5.0); ALKALINE PHOSPHATASE 99 U/L (38-126); ANION GAP 15 (5-19); ASPARTATE AMINO TRANSFERASE 24 U/L (17-59); BILIRUBIN,DIRECT 0.5 mg/dL (0.0-0.4); BILIRUBIN,TOTAL 0.5 mg/dL (0.2-1.3); BLOOD UREA NITROGEN 36 mg/dL (7-20); CALCIUM 9.7 mg/dL (8.4-10.2); CARBON DIOXIDE 26 mmol/L (22-30); CHLORIDE 91 mmol/L (98-107); GLUCOSE 310 mg/dL (75-110); POTASSIUM 4.4 mmol/L (3.6-5.0); TOTAL PROTEIN 7.9 g/dL (6.3-8.2)
[2019-12-06 15:22] VITALS: BP 159/71
--- NOTE | 2019-12-07 13:00 | ER Document Report ---
Entered by PASCUAL TREVIZO SCRIBE 12/06/19 1259 Acting as scribe for:JAIDEN GRIFFIN MD ED GI/ - General Chief Complaint: Constipation Stated Complaint: CONSTIPATION Time Seen by Provider: 12/06/19 12:26 Primary Care Provider: BHUPENDRA GUZMAN MD [Primary Care Provider] - Follow up as needed Information source: Patient Notes: This 74-year-old male patient presents to the emergency department today with complaints of constipation. Patient states his last bowel movement was approximately 1 week ago. Patient states that he has tried prune juice at home but has not had a bowel movement. Patient also took "1 laxative pill" but was not successful. Patient denies any abdominal pain or abdominal distention. TRAVEL OUTSIDE OF THE [place] IN LAST 30 DAYS: No - Related Data Allergies/Adverse Reactions: No Known Allergies Allergy (Verified 12/06/19 12:39) Past Medical History - General Information source: Patient - Social History Smoking Status: Unknown if Ever Smoked Cigarette use (# per day): No Frequency of alcohol use: None Drug Abuse: None Lives with: Family Family History: Reviewed & Not Pertinent, Hypertension Patient has suicidal ideation: No Patient has homicidal ideation: No - Past Medical History Cardiac Medical History: Reports: Hx Hypercholesterolemia, Hx Hypertension Pulmonary Medical History: Reports: Hx Sleep Apnea Endocrine Medical History: Reports: Hx Diabetes Mellitus Type 2 Renal/ Medical History: Reports: Hx End Stage Renal Disease - On dialysis since 2017, Hx Hemodialysis GI Medical History: Reports: Hx Colonoscopy Musculoskeletal Medical History: Reports Hx Arthritis, Reports Hx Musculoskeletal Deformity, Reports Hx Musculoskeletal Trauma Past Surgical History: Reports: Hx Orthopedic Surgery - left shoulder, Hx Rectal Surgery - Hemorrhoidectomy, Hx Vascular Surgery - Dialysis catheter and dialysis shunt, Other - Eye surgery - Immunizations Hx Diphtheria, Pertussis, Tetanus Vaccination: Yes Hx Pneumococcal Vaccination: 05/12/12 Review of Systems - Review of Systems Constitutional: No symptoms reported EENT: No symptoms reported Cardiovascular: No symptoms reported Respiratory: No symptoms reported Gastrointestinal: See HPI, Constipation Genitourinary: No symptoms reported Male Genitourinary: No symptoms reported Musculoskeletal: No symptoms reported Skin: No symptoms reported Hematologic/Lymphatic: No symptoms reported Neurological/Psychological: No symptoms reported -: Yes All other systems reviewed and negative Physical Exam - Vital signs Vitals: Temp Pulse Resp BP Pulse Ox 98.1 F 90 18 161/70 H 96 12/06/19 12:38 12/06/19 12:38 12/06/19 12:38 12/06/19 12:38 12/06/19 12:38 - Notes Notes: Physical Exam: General: Alert, appears well. HEENT: Normocephalic. Atraumatic. Oropharynx clear. Right eye prosthesis. Neck: Supple. Non-tender. Respiratory: No respiratory distress. Clear and equal breath sounds bilaterally. Cardiovascular: Regular rate and rhythm. Abdominal: Normal Inspection. Non-tender. No distension. Normal Bowel Sounds. Back: No gross abnormalities. Extremities: Moves all four extremities. Upper extremities: Normal inspection. Normal ROM. Lower extremities: Normal inspection. No edema. Normal ROM. Neurological: Normal cognition. AAOx4. Normal speech. Psychological: Normal affect. Normal Mood. Skin: Warm. Dry. Normal color. Course - Re-evaluation Re-evalutation: 12/06/19 14:39 resting comfortable. - Vital Signs Vital signs: Temp Pulse Resp BP Pulse Ox 98.1 F 90 18 161/70 H 96 12/06/19 12:38 12/06/19 12:38 12/06/19 12:38 12/06/19 12:38 12/06/19 12:38 - Laboratory Result Diagrams: 12/06/19 13:40 12/06/19 13:40 Laboratory results interpreted by me: 12/06/19 12/06/19 13:40 13:40 RBC 3.77 L Hgb 11.1 L Hct 32.4 L RDW 14.6 H Sodium 132.3 L Chloride 91 L BUN 36 H Creatinine 9.72 H Est GFR ( Amer) 6 L Est GFR (MDRD) Non-Af 5 L Glucose 310 H Direct Bilirubin 0.5 H 12/06/19 14:40 chronic kidney disease. Insukin dependent DM. elevated sugar and renal function. - Diagnostic Test Radiology reviewed: Image reviewed, Reports reviewed Radiology results interpreted by me: 12/06/19 14:41 mild constipation. Discharge - Discharge Clinical Impression: Constipation by delayed colonic transit, Anemia in chronic kidney disease (CKD), End stage renal failure on dialysis, Diabetes Condition: Stable Disposition: HOME, SELF-CARE Instructions: Constipation ([facility]), Laxative ([facility]) Referrals: BHUPENDRA GUZMAN MD [Primary Care Provider] - Follow up as needed I personally performed the services described in the documentation, reviewed and edited the documentation which was dictated to the scribe in my presence, and it accurately records my words and actions.
== END 2019-12-06 15:18 | disposition home or self-care (01) ==
LOC: ER 12:13
DX: K59.01 Slow transit constipation (principal); D63.1 Anemia in chronic kidney disease; E11.22 Type 2 diabetes mellitus with diabetic chronic kidney disease; I12.0 Hypertensive chronic kidney disease with stage 5 chronic kidney disease or end stage renal disease; N18.6 End stage renal disease; E78.00 Pure hypercholesterolemia, unspecified; Z99.2 Dependence on renal dialysis
CPT/HCPCS: 36415; 74018; 80053; 85025; 99283

== ENCOUNTER 2020-01-04 07:25 | Emergency (ER) | payer MEDICARE ==
[2020-01-04] MEDS ORDERED: ONDANSETRON HCL INJ/PF 4 MG/2 ML SDV IV ONE (08:05)
[2020-01-04 08:17] LABS: ABSOLUTE BASOPHILS # (AUTO) 0.1 10^3/uL (0.0-0.2); ABSOLUTE EOSINOPHILS # (AUTO) 0.1 10^3/uL (0.0-0.6); ABSOLUTE LYMPHOCYTES (AUTO) 0.6 10^3/uL (0.5-4.7); ABSOLUTE MONOCYTES (AUTO) 0.6 10^3/uL (0.1-1.4); ABSOLUTE NEUT (AUTO) 8.4 10^3/uL (1.7-8.2); BASOPHILS % (AUTO) 0.6 % (0-2); EOSINOPHILS % (AUTO) 0.8 % (0-6); HEMATOCRIT 38.9 % (37.9-51.0); HEMOGLOBIN 13.1 g/dL (13.5-17.0); LYMPHOCYTES % (AUTO) 6.1 % (13-45); MEAN CORPUSCULAR HEMOGLOBIN 29.6 pg (27.0-33.4); MEAN CORPUSCULAR HGB CONC 33.7 g/dL (32.0-36.0); MEAN CORPUSCULAR VOLUME 88 fl (80-97); MONOCYTES % (AUTO) 5.7 % (3-13); PLATELET COUNT 232 10^3/uL (150-450); RED BLOOD COUNT 4.43 10^6/uL (4.35-5.55); RED CELL DISTRIBUTION WIDTH 14.7 % (11.5-14.0); SEGMENTED NEUTROPHILS % (AUTO) 86.8 % (42-78); TOTAL CELLS COUNTED % (AUTO) 100 %; WHITE BLOOD COUNT 9.7 10^3/uL (4.0-10.5)
[2020-01-04 08:37] LABS: ALBUMIN 5.4 g/dL (3.5-5.0); ALKALINE PHOSPHATASE 96 U/L (38-126); ASPARTATE AMINO TRANSFERASE 22 U/L (17-59); BILIRUBIN,DIRECT 0.4 mg/dL (0.0-0.4); BILIRUBIN,TOTAL 0.9 mg/dL (0.2-1.3); BLOOD UREA NITROGEN 57 mg/dL (7-20); CALCIUM 10.4 mg/dL (8.4-10.2); GLUCOSE 129 mg/dL (75-110); POTASSIUM 4.8 mmol/L (3.6-5.0); TOTAL PROTEIN 9.5 g/dL (6.3-8.2)
--- NOTE | 2020-01-04 08:37 | ER Document Report ---
ED GI/ - General Chief Complaint: Nausea/Vomiting/Diarrhea Stated Complaint: VOMITING Time Seen by Provider: 01/04/20 07:55 Primary Care Provider: BHUPENDRA GUZMAN MD [Primary Care Provider] - Follow up as needed Information source: Patient Notes: Patient presents reporting nausea vomiting diarrhea. Patient states he had symptoms 2 days ago that resolved yesterday and then returned again today. Patient denies any fever. Patient denies any chest pain, abdominal pain or shortness of breath. Patient is a dialysis patient that normally dialyzes on Friday and Friday and has not gone to dialysis today. Patient has not been able to take his blood pressure medication due to the vomiting. TRAVEL OUTSIDE OF THE [place] IN LAST 30 DAYS: No - HPI Patient complains to provider of: Diarrhea, Vomiting. No: Abdominal pain Onset: This morning Timing/Duration: Gradual Quality of pain: No pain Location: No: Chest pain, Epigastric, LUQ, LLQ, RUQ, RLQ Associated symptoms: Diarrhea, Nausea. denies: Blood in emesis, Blood in stool, Constipation, Fever Exacerbated by: Denies Relieved by: Denies Similar symptoms previously: Yes Recently seen / treated by doctor: No - Related Data Allergies/Adverse Reactions: No Known Allergies Allergy (Verified 12/06/19 12:39) Past Medical History - General Information source: Patient - Social History Smoking Status: Never Smoker Frequency of alcohol use: None Drug Abuse: None Lives with: Family Family History: Reviewed & Not Pertinent, Hypertension Patient has suicidal ideation: No Patient has homicidal ideation: No - Past Medical History Cardiac Medical History: Reports: Hx Hypercholesterolemia, Hx Hypertension Pulmonary Medical History: Reports: Hx Sleep Apnea Denies: Hx Tuberculosis Endocrine Medical History: Reports: Hx Diabetes Mellitus Type 2 Renal/ Medical History: Reports: Hx End Stage Renal Disease - On dialysis sinc e 2017, Hx Hemodialysis. Denies: Hx Peritoneal Dialysis GI Medical History: Reports: Hx Colonoscopy Musculoskeletal Medical History: Reports Hx Arthritis, Reports Hx Musculoskeletal Deformity, Reports Hx Musculoskeletal Trauma Psychiatric Medical History: Denies: Hx Depression Past Surgical History: Reports: Hx Orthopedic Surgery - left shoulder, Hx Rectal Surgery - Hemorrhoidectomy, Hx Vascular Surgery - Dialysis catheter and dialysis shunt, Other - Eye surgery. Denies: Hx Pacemaker - Immunizations Hx Diphtheria, Pertussis, Tetanus Vaccination: Yes Hx Pneumococcal Vaccination: 05/12/12 Review of Systems - Review of Systems Constitutional: No symptoms reported. denies: Fever, Recent illness EENT: No symptoms reported Cardiovascular: No symptoms reported. denies: Chest pain, Palpitations, Lightheaded Respiratory: No symptoms reported. denies: Cough, Short of breath Gastrointestinal: Diarrhea, Nausea, Vomiting. denies: Abdominal pain, Blood streaked bowels, Blood in vomit, Black stools, Rectal bleeding Genitourinary: No symptoms reported Male Genitourinary: No symptoms reported Musculoskeletal: No symptoms reported. denies: Back pain Skin: No symptoms reported Hematologic/Lymphatic: No symptoms reported Neurological/Psychological: No symptoms reported Physical Exam - Vital signs Vitals: Temp Pulse Resp BP Pulse Ox 98.8 F 106 H 16 215/83 H 95 01/04/20 07:35 01/04/20 07:35 01/04/20 07:35 01/04/20 07:35 01/04/20 07:35 - General General appearance: Appears well, Alert In distress: None - HEENT Head: Normocephalic, Atraumatic Eyes: Normal Nasal: Normal Mouth/Lips: Normal Mucous membranes: Normal Neck: Normal, Supple - Respiratory Respiratory status: No respiratory distress Chest status: Nontender Breath sounds: Normal Chest palpation: Normal - Cardiovascular Rhythm: Tachycardia Heart sounds: S1 appreciated, S2 appreciated - Abdominal Inspection: Normal Distension: No distension Bowel sounds: Normal Tenderness: Nontender Organomegaly: No organomegaly - Back Back: Normal, Nontender. No: CVA tenderness - Extremities General upper extremity: Normal inspection, Normal ROM General lower extremity: Normal inspection, Normal ROM - Neurological Neuro grossly intact: Yes Cognition: Normal Celestine Coma Scale Eye Opening: Spontaneous Kittrell Coma Scale Verbal: Oriented Celestine Coma Scale Motor: Obeys Commands Kittrell Coma Scale Total: 15 - Psychological Associated symptoms: Normal affect, Normal mood - Skin Skin Temperature: Warm Skin Moisture: Dry Skin Color: Normal Course - Re-evaluation Re-evalutation: 01/04/20 09:45 Abdomen continues soft nontender. Patient denies any pain symptoms. Patient reports nausea is improved after Zofran. Patient has tolerated some fluids and has taken his antihypertensive medications. Patient does feel as though he can manage his symptoms at home. [employer] [place] called patient's dialysis center who states that they can get him fit in today once he is discharged from the ER. 01/04/20 09:[address] Champion regarding patient presentation, review diagnostic results as well as EKG. Agrees with discharge plan of care at this time. - Vital Signs Vital signs: Temp Pulse Resp BP Pulse Ox 98.8 F 106 H 14 179/79 H 93 01/04/20 07:35 01/04/20 07:35 01/04/20 09:53 01/04/20 09:53 01/04/20 09:01 - Laboratory Result Diagrams: 01/04/20 07:56 01/04/20 07:56 Laboratory results interpreted by me: 01/04/20 01/04/20 07:56 07:56 Hgb 13.1 L RDW 14.7 H Lymph % (Auto) 6.1 L Absolute Neuts (auto) 8.4 H Seg Neutrophils % 86.8 H Carbon Dioxide 20 L Anion Gap 22 H BUN 57 H Creatinine 12.33 H Est GFR ( Amer) 5 L Est GFR (MDRD) Non-Af 4 L Glucose 129 H Calcium 10.4 H Total Protein 9.5 H Albumin 5.4 H Lipase 453.1 H 01/04/20 09:44 Labs- Entire Visit 01/04/20 01/04/20 07:56 07:56 WBC 9.7 RBC 4.43 Hgb 13.1 L Hct 38.9 MCV 88 MCH 29.6 MCHC 33.7 RDW 14.7 H Plt Count 232 Lymph % (Auto) 6.1 L [place] % (Auto) 5.7 Eos % (Auto) 0.8 Baso % (Auto) 0.6 Absolute Neuts (auto) 8.4 H Absolute Lymphs (auto) 0.6 Absolute Monos (auto) 0.6 Absolute Eos (auto) 0.1 Absolute Basos (auto) 0.1 Seg Neutrophils % 86.8 H Sodium 140.6 Potassium 4.8 Chloride 99 Carbon Dioxide 20 L Anion Gap 22 H BUN 57 H Creatinine 12.33 H Est GFR ( Amer) 5 L Est GFR (MDRD) Non-Af 4 L Glucose 129 H Calcium 10.4 H Total Bilirubin 0.9 Direct Bilirubin 0.4 Neonat Total Bilirubin Not Reportable Neonat Direct Bilirubin Not Reportable Neonat Indirect Bili Not Reportable AST 22 ALT 17 Alkaline Phosphatase 96 Total Protein 9.5 H Albumin 5.4 H Lipase 453.1 H - Diagnostic Test Radiology reviewed: Reports reviewed - EKG Interpretation by Me EKG shows normal: Sinus rhythm Rate: Tachycardia Heart block present: 1st Degree Additional EKG results interpreted by me: 01/04/20 09:[address] elevation Discharge - Discharge Clinical Impression: Nausea vomiting and diarrhea, End stage renal failure on dialysis Hypertension Qualifiers: Hypertension type: unspecified Qualified Code(s): I10 - Essential (primary) hypertension Condition: Stable Disposition: HOME, SELF-CARE Instructions: Antinausea Medication ([facility]), Diarrhea, Nonspecific ([facility]), Vomiting ([facility]) Additional Instructions: Return immediately for any new or worsening symptoms Followup with your primary care provider, call tomorrow to make a followup appointment Follow-up directly with the dialysis clinic, they will fit you in today. Prescriptions: Ondansetron [Zofran Odt 4 mg Tablet] 1 tab PO Q6H #15 tab.rapdis Referrals: BHUPENDRA GUZMAN MD [Primary Care Provider] - Follow up as needed
[2020-01-04 08:42] LABS: CARBON DIOXIDE 20 mmol/L (22-30); CHLORIDE 99 mmol/L (98-107)
--- NOTE | 2020-01-04 08:45 | RADIOLOGY REPORT (SQ) ---
EXAM DESCRIPTION: CHEST SINGLE VIEW IMAGES COMPLETED DATE/TIME: 01/04/2020 8:33 am REASON FOR STUDY: vomiting, ESRD pt COMPARISON: 11/28/2019 EXAM PARAMETERS: NUMBER OF VIEWS: One view. TECHNIQUE: Single frontal radiographic view of the chest acquired. RADIATION DOSE: NA LIMITATIONS: None. FINDINGS: LUNGS AND PLEURA: No opacities, masses or pneumothorax. No pleural effusion. MEDIASTINUM AND HILAR STRUCTURES: No masses. Contour normal. HEART AND VASCULAR STRUCTURES: Heart normal in size. Normal vasculature. BONES: No acute findings. HARDWARE: None in the chest. OTHER: No other significant finding. IMPRESSION: NO ACUTE RADIOGRAPHIC FINDING IN THE CHEST. TECHNICAL DOCUMENTATION: JOB ID: [id number] 2010 [employer]- All Rights Reserved Reading location - IP/workstation name: [email or web address]
[2020-01-04 08:46] LABS: ANION GAP 22 (5-19)
[2020-01-04] MEDS ORDERED: CLONIDINE HCL 0.2 MG TABLET PO ONE (09:16)
[2020-01-04] MEDS ORDERED: HYDRALAZINE HCL 50 MG TABLET PO ONE (09:17)
[2020-01-04 10:05] VITALS: BP 179/79
--- NOTE | 2020-01-05 07:25 | EKG REPORT ---
SEVERITY:- ABNORMAL ECG - SINUS TACHYCARDIA FIRST DEGREE AV BLOCK BORDERLINE LEFT AXIS DEVIATION : Confirmed by: Jovany Palomares 05-Jan-2020 07:24:55
== END 2020-01-04 10:07 | disposition home or self-care (01) ==
LOC: ER 07:25
DX: I12.0 Hypertensive chronic kidney disease with stage 5 chronic kidney disease or end stage renal disease (principal); E11.22 Type 2 diabetes mellitus with diabetic chronic kidney disease; N18.6 End stage renal disease; Z99.2 Dependence on renal dialysis; R11.2 Nausea with vomiting, unspecified; R19.7 Diarrhea, unspecified; R11.10 Vomiting, unspecified; R11.0 Nausea; I10 Essential (primary) hypertension; E11.9 Type 2 diabetes mellitus without complications
CPT/HCPCS: 93005; 99284; 36415; 82962; 83690; 85025; 80053; 71045; 93010; A9270 ×2; J2405

== ENCOUNTER 2020-02-24 07:53 | Emergency (ER) | payer MEDICARE ==
--- NOTE | 2020-02-24 07:57 | ER Document Report ---
ED General - General Chief Complaint: Near Syncope Stated Complaint: FALL/NEAR SYNCOPE Time Seen by Provider: 02/24/20 07:55 Primary Care Provider: BHUPENDRA GUZMAN MD [Primary Care Provider] - Follow up as needed Notes: 74-year-old male end-stage renal disease on dialysis, presents with mild headache. He fell while feeling lightheaded walking out to his car to go dialysis. No LOC. Is not sure if he hit his head but his occiput hurts a little. No neck pain no numbness no tingling no chest pain Hypertensive otherwise vitals normal for EMS, EKG was normal as well He says he often feels like this on the way to dialysis. He does not take blood thinners. TRAVEL OUTSIDE OF THE [place] IN LAST 30 DAYS: No - Related Data Allergies/Adverse Reactions: No Known Allergies Allergy (Verified 12/06/19 12:39) Past Medical History - General Information source: Patient - Social History Smoking Status: Never Smoker Family History: Reviewed & Not Pertinent, Hypertension - Past Medical History Cardiac Medical History: Reports: Hx Hypercholesterolemia, Hx Hypertension Pulmonary Medical History: Reports: Hx Sleep Apnea Denies: Hx Tuberculosis Endocrine Medical History: Reports: Hx Diabetes Mellitus Type 2 Renal/ Medical History: Reports: Hx End Stage Renal Disease - On dialysis since 2017, Hx Hemodialysis. Denies: Hx Peritoneal Dialysis GI Medical History: Reports: Hx Colonoscopy Musculoskeletal Medical History: Reports Hx Arthritis, Reports Hx M usculoskeletal Deformity, Reports Hx Musculoskeletal Trauma Psychiatric Medical History: Denies: Hx Depression Past Surgical History: Reports: Hx Orthopedic Surgery - left shoulder, Hx Rectal Surgery - Hemorrhoidectomy, Hx Vascular Surgery - Dialysis catheter and dialysis shunt, Other - Eye surgery. Denies: Hx Pacemaker - Immunizations Hx Diphtheria, Pertussis, Tetanus Vaccination: Yes Hx Pneumococcal Vaccination: 05/12/12 Review of Systems - Review of Systems Notes: REVIEW OF SYSTEMS GEN: Denies fever, chills, weight loss ENT: Denies sore throat, nasal discharge, ear pain EYES: Denies blurry vision, eye pain, discharge CV: Denies chest pain, palpitations, edema RESP: Denies cough, shortness of breath, wheezing GI: Denies abdominal pain, nausea, vomiting, diarrhea MSK: Denies joint pain/swelling, edema, SKIN: Denies rash, skin lesions LYMPH: Denies swollen glands/lymph nodes NEURO: Mild headache, denies focal weakness or numbness, dizziness PSYCH: Denies depression, suicidal or homicidal ideation PHYSICAL EXAMINATION General: No acute distress, well-nourished Head: Atraumatic, normocephalic ENT: Mouth normal, oropharynx moist, no exudates or tonsillar enlargement Eyes: Conjunctiva normal, pupils equal, lids normal Neck: No JVD, supple, no guarding CVS: Normal rate, regular rhythm, no murmurs Resp: No resp distress, equal and normal breath sounds bilaterally GI: Nondistended, soft, no tenderness to palpation, no rebound or guarding Ext: No deformities, no edema, normal range of motion in upper and lower ext Back: No CVA or midline TTP Skin: No rash, warm Lymphatic: No lymphadeopathy noted Neuro: Awake, alert. Face symmetric. GCS 15. Physical Exam - Vital signs Vitals: Temp Pulse Resp BP Pulse Ox 98.4 F 79 16 207/87 H 96 02/24/20 08:04 02/24/20 08:04 02/24/20 08:04 02/24/20 08:04 02/24/20 08:04 Course - Re-evaluation Re-evalutation: 02/24/20 07:56 Fall from standing without evident head trauma, LOC or concern for intracranial bleed In a c-collar but has no criteria for it, or for imaging Removed cleared clinically We will give Tylenol for his mild headache. I suspect that what he needs is dialysis we will attempt to discharge him to go straight to dialysis. I do not think EKG labs chest x-ray would change anything given that he knows he needs to go straight to dialysis. I have discussed with the patient there likely diagnosis, aftercare plan, follow-up plans and my usual and customary return precautions. They verbalized understanding of this. 02/24/20 15:21 Observed in ED. Headache resolved. Transported to dialysis. - Vital Signs Vital signs: Temp Pulse Resp BP Pulse Ox 98.0 F 84 12 168/68 H 96 02/24/20 09:58 02/24/20 09:58 02/24/20 09:58 02/24/20 09:58 02/24/20 09:58 Discharge - Discharge Clinical Impression: Near syncope Condition: Good Disposition: HOME, SELF-CARE Instructions: Head Injury Precautions ([facility]), Near Syncopal Episode ([facility]) Referrals: BHUPENDRA GUZMAN MD [Primary Care Provider] - Follow up as needed
[2020-02-24] MEDS ORDERED: ACETAMINOPHEN 325 MG TABLET PO ONE (08:03)
[2020-02-24 10:00] VITALS: BP 168/68
== END 2020-02-24 10:00 | disposition home or self-care (01) ==
LOC: ER 07:53
DX: R55 Syncope and collapse (principal); R51 Headache; W19.XXXA Unspecified fall, initial encounter; Y93.89 Activity, other specified; I12.0 Hypertensive chronic kidney disease with stage 5 chronic kidney disease or end stage renal disease; E11.22 Type 2 diabetes mellitus with diabetic chronic kidney disease; N18.6 End stage renal disease; Z99.2 Dependence on renal dialysis
CPT/HCPCS: 99284; A9270

== ENCOUNTER 2020-02-27 14:15 | Emergency (ER) | payer MEDICARE ==
[2020-02-27 15:07] LABS: ABSOLUTE EOSINOPHILS # (AUTO) 0.2 10^3/uL (0.0-0.6); ABSOLUTE LYMPHOCYTES (AUTO) 0.8 10^3/uL (0.5-4.7); ABSOLUTE MONOCYTES (AUTO) 0.7 10^3/uL (0.1-1.4); ABSOLUTE NEUT (AUTO) 4.3 10^3/uL (1.7-8.2); BASOPHILS % (AUTO) 0.7 % (0-2); EOSINOPHILS % (AUTO) 3.9 % (0-6); HEMATOCRIT 34.4 % (37.9-51.0); HEMOGLOBIN 11.5 g/dL (13.5-17.0); LYMPHOCYTES % (AUTO) 13.5 % (13-45); MEAN CORPUSCULAR HEMOGLOBIN 28.8 pg (27.0-33.4); MEAN CORPUSCULAR HGB CONC 33.5 g/dL (32.0-36.0); MEAN CORPUSCULAR VOLUME 86 fl (80-97); MONOCYTES % (AUTO) 11.9 % (3-13); PLATELET COUNT 194 10^3/uL (150-450); RED BLOOD COUNT 4.01 10^6/uL (4.35-5.55); RED CELL DISTRIBUTION WIDTH 14.2 % (11.5-14.0); TOTAL CELLS COUNTED % (AUTO) 100 %; WHITE BLOOD COUNT 6.2 10^3/uL (4.0-10.5)
[2020-02-27 15:27] LABS: ALBUMIN 4.8 g/dL (3.5-5.0); ALKALINE PHOSPHATASE 95 U/L (38-126); ANION GAP 15 (5-19); ASPARTATE AMINO TRANSFERASE 19 U/L (17-59); BILIRUBIN,DIRECT 0.3 mg/dL (0.0-0.4); BILIRUBIN,TOTAL 0.9 mg/dL (0.2-1.3); BLOOD UREA NITROGEN 33 mg/dL (7-20); CALCIUM 10.4 mg/dL (8.4-10.2); CARBON DIOXIDE 26 mmol/L (22-30); CHLORIDE 98 mmol/L (98-107); CREATINE KINASE 122 U/L (55-170); GLUCOSE 163 mg/dL (75-110); POTASSIUM 3.9 mmol/L (3.6-5.0); TOTAL PROTEIN 8.2 g/dL (6.3-8.2)
--- NOTE | 2020-02-27 15:33 | RADIOLOGY REPORT (SQ) ---
EXAM DESCRIPTION: CHEST SINGLE VIEW IMAGES COMPLETED DATE/TIME: 02/27/2020 2:10 pm REASON FOR STUDY: Shortness of breath COMPARISON: 01/04/2020 EXAM PARAMETERS: NUMBER OF VIEWS: One view. TECHNIQUE: Single frontal radiographic view of the chest acquired. RADIATION DOSE: NA LIMITATIONS: None. FINDINGS: LUNGS AND PLEURA: Lungs are hyperinflated. No focal consolidation or pleural effusion. N o pneumothorax. MEDIASTINUM AND HILAR STRUCTURES: No masses. Contour normal. HEART AND VASCULAR STRUCTURES: Heart normal in size. Normal vasculature. BONES: No acute findings. HARDWARE: None in the chest. OTHER: No other significant finding. IMPRESSION: NO ACUTE RADIOGRAPHIC FINDING IN THE CHEST. TECHNICAL DOCUMENTATION: JOB ID: [id number] 2010 [employer] [facility]- All Rights Reserved Reading location - IP/workstation name: [email or web address]
[2020-02-27 15:37] LABS: CREATINE KINASE MB 3.13 ng/mL (<4.55)
[2020-02-27 15:41] LABS: TROPONIN I 0.803 ng/mL
--- NOTE | 2020-02-27 17:27 | ER Document Report ---
Entered by ASHLEY LORENZ SCRIBE 02/27/20 [id number] Acting as scribe for:YANETH MILLAN DO ED Respiratory Problem - General Chief Complaint: Shortness Of Breath Stated Complaint: CHEST PAIN,SHORTNESS OF BRETH Time Seen by Provider: 02/27/20 15:29 Primary Care Provider: BHUPENDRA CARDOZO MD [Primary Care Provider] - Follow up as needed Information source: Patient Notes: This 74 year old male patient presents to the emergency department today with shortness of breath. Patient states he has SOB when exerting himself, such as walking to his mailbox. Patient sates he is on hemodialysis every Friday, , and Friday, with his last appointment being yesterday. Patient states when he felt short of breath today, he called his neighbor, who brought him oxygen. Denies any fever. Patient states he was in the ED x2 days ago for a fall that occurred in his driveway. TRAVEL OUTSIDE OF THE [place] IN LAST 30 DAYS: No - Related Data Allergies/Adverse Reactions: No Known Allergies Allergy (Verified 12/06/19 12:39) Home Medications: Hydralazine, cetirizine, calcium acetate, atorvastatin, clonidine, losartan, lantus Past Medical History - General Information source: Patient - Social History Smoking Status: Never Smoker Cigarette use (# per day): No Frequency of alcohol use: Occasional Drug Abuse: None Family History: Reviewed & Not Pertinent, Hypertension Patient has homicidal ideation: No - Past Medical History Cardiac Medical History: Reports: Hx Congestive Heart Failure, Hx Hypercholesterolemia, Hx Hypertension Pulmonary Medical History: Reports: Hx Sleep Apnea Endocrine Medical History: Reports: Hx Diabetes Mellitus Type 2 Renal/ Medical History: Reports: Hx End Stage Renal Disease - On dialysis since 2017, Hx Hemodialysis GI Medical History: Reports: Hx Colonoscopy Musculoskeletal Medical History: Reports Hx Arthritis, Reports Hx Musculoskeletal Deformity, Reports Hx Musculoskeletal Trauma Past Surgical History: Reports: Hx Orthopedic Surgery - left shoulder, Hx Rectal Surgery - Hemorrhoidectomy, Hx Vascular Surgery - Dialysis catheter and dialysis shunt, Other - Eye surgery - Immunizations Hx Diphtheria, Pertussis, Tetanus Vaccination: Yes Hx Pneumococcal Vaccination: 05/12/12 Review of Systems - Review of Systems Constitutional: See HPI. denies: Fever EENT: No symptoms reported Cardiovascular: No symptoms reported Respiratory: See HPI, Short of breath Gastrointestinal: No symptoms reported Genitourinary: No symptoms reported Male Genitourinary: No symptoms reported Musculoskeletal: No symptoms reported Skin: No symptoms reported Hematologic/Lymphatic: No symptoms reported Neurological/Psychological: No symptoms reported -: Yes All other systems reviewed and negative Physical Exam - Vital signs Vitals: Resp BP Pulse Ox 13 208/90 H 100 02/27/20 14:39 02/27/20 14:39 02/27/20 14:39 - General General appearance: Appears well, Alert - HEENT Head: Normocephalic, Atraumatic Eyes: Normal Pupils: PERRL - Respiratory Respiratory status: No respiratory distress Chest status: Nontender Breath sounds: Normal Chest palpation: Normal - Cardiovascular Rhythm: Regular Heart sounds: Normal auscultation Murmur: No - Abdominal Inspection: Normal - Soft, Obese Distension: No distension Bowel sounds: Normal Tenderness: Nontender - Extremities General upper extremity: Normal inspection. No: Edema General lower extremity: Normal inspection. No: Edema Arm: Other - Shunt in L arm. Palpable thrill. - Neurological Neuro grossly intact: Yes Cognition: Normal Orientation: AAOx4 - Psychological Associated symptoms: Normal affect, Normal mood - Skin Skin Temperature: Warm Skin Moisture: Dry Skin Color: Normal Course - Re-evaluation Re-evalutation: 02/27/20 20:06 MDM 74 year old male arrives with sob with activity. Does not support acs at this time. He is a HD pt and is compliant he tells me. Feels like chf has in the past but no evidence on cxr of that. BP a bit labile for this gnentleman which is not new. Discussed close follow up- tomorrow and HD Friday and he expressed undrstanidng. No evidence of fever or covid at this time. He is comfortable following up. 2nd troponin is pending and will be checked by Dr. Poon. - Vital Signs Vital signs: Temp Pulse Resp BP Pulse Ox 97.7 F 16 207/87 H 100 02/27/20 14:49 02/27/20 16:00 02/27/20 16:01 02/27/20 16:00 - Laboratory Result Diagrams: 02/27/20 14:55 02/27/20 14:55 Laboratory results interpreted by me: 02/27/20 02/27/20 02/27/20 14:55 14:55 14:55 RBC 4.01 L Hgb 11.5 L Hct 34.4 L RDW 14.2 H BUN 33 H Creatinine 7.60 H Est GFR ( Amer) 9 L Est GFR (MDRD) Non-Af 7 L Glucose 163 H Calcium 10.4 H NT-Pro-B Natriuret Pep 85783 H - Diagnostic Test Radiology reviewed: Image reviewed, Reports reviewed Discharge - Discharge Clinical Impression: Hypertensive urgency, End stage renal failure on dialysis Dyspnea Qualifiers: Dyspnea type: dyspnea on exertion Qualified Code(s): R06.00 - Dyspnea, unspecified Condition: Stable Disposition: HOME, SELF-CARE Additional Instructions: See Dr. Cardozo in follow up tomorrow. Your blood pressure was elevated here and needs close following. It was up last week too. Please return here for any problems or any concerns including but not limited to chest pain or shortness of breath or fever or chills. Referrals: BHUPENDRA CARDOZO MD [Primary Care Provider] - Follow up as needed I personally performed the services described in the documentation, reviewed and edited the documentation which was dictated to the scribe in my presence, and it accurately records my words and actions.
[2020-02-27] MEDS ORDERED: HYDRALAZINE HCL INJ/PF 20 MG/1 ML SDV IV ONE ×2 (17:28→19:58)
[2020-02-27] MEDS ORDERED: CLONIDINE HCL 0.2 MG TABLET PO ONE (19:58)
--- NOTE | 2020-02-27 21:01 | ER Document Report ---
Doctor's Note Notes: 02/27/20 21:04 Patient was checked out to this MD by Dr. Hickey at [address] Hickey informed this MD that the patient is a end-stage renal patient on dialysis and his initial troponin was 0.8. Dr. hickey stated that if the repeat troponin was basically in the same range and less than 1.0, the patient could be discharged home. Repeat troponin is 0.701. Patient will be discharged home as per Dr. Hickey's instructions.
[2020-02-27] MEDS ORDERED: NIFEDIPINE 30 MG TAB.ER.24 PO ONE (22:28)
--- NOTE | 2020-02-27 22:42 | EKG REPORT ---
SEVERITY:- ABNORMAL ECG - SINUS RHYTHM FIRST DEGREE AV BLOCK PROBABLE LEFT ATRIAL ABNORMALITY LVH WITH SECONDARY REPOLARIZATION ABNORMALITY : Confirmed by: Tejal Norris MD 27-Feb-2020 22:41:52
[2020-02-27 22:51] VITALS: BP 197/83
== END 2020-02-27 23:08 | disposition home or self-care (01) ==
LOC: ER 14:15
DX: I16.0 Hypertensive urgency (principal); I12.0 Hypertensive chronic kidney disease with stage 5 chronic kidney disease or end stage renal disease; E11.22 Type 2 diabetes mellitus with diabetic chronic kidney disease; N18.6 End stage renal disease; Z99.2 Dependence on renal dialysis; R06.02 Shortness of breath; E78.00 Pure hypercholesterolemia, unspecified; Z79.899 Other long term (current) drug therapy; Z79.4 Long term (current) use of insulin
CPT/HCPCS: 93005; 96376; 99285; 96374; 36415; 82553; 82550; 85025; 80053; 84484; 83880; 71045; 93010; A9270 ×2; J0360

== ENCOUNTER → 2020-03-01 | Outpatient (CLI) | payer MEDICARE ==
--- NOTE | 2020-03-02 08:51 | RADIOLOGY REPORT (SQ) ---
EXAM DESCRIPTION: MRA ABDOMEN WITHOUT IMAGES COMPLETED DATE/TIME: 03/01/2020 5:46 pm REASON FOR STUDY: (I15.9)SECONDARY HYPERTENSION, UNSPECIFIED;(I70.1)ATHEROSCLEROSIS OF RENAL I15.9 SECONDARY HYPERTENSION, UNSPECIFIED I70.1 ATHEROSCLEROSIS OF RENAL ARTERY COMPARISON: None. TECHNIQUE: Coronal and Axial imaging with T1 and T2 weighting through the abdomen. 3-D MIPs performe d at the work station. CONTRAST TYPE AND DOSE: Noncontrast study. RENAL FUNCTION: Noncontrast study. LIMITATIONS: None. FINDINGS: AORTA AND ILIAC ARTERIES:No aneurysm. No dissection. No significant finding or stenosis. MESENTERIC VESSELS:No significant finding or stenosis. RENAL ARTERIES:The left kidney is absent. Single right renal artery which appears patent with no hig h-grade stenosis. ABDOMINAL ORGANS: No significant finding. BONY STRUCTURES: No significant finding as visualized. OTHER: No other significant finding. IMPRESSION: ABSENT LEFT KIDNEY. NO HIGH-GRADE STENOSIS IDENTIFIED IN THE RIGHT RENAL ARTERY. THE C ELIAC AXIS AND SUPERIOR MESENTERIC ARTERY ARE ALSO PATENT WITHOUT HIGH-GRADE STENOSIS. TECHNICAL DOCUMENTATION: JOB ID: [id number] 2010 [employer]- All Rights Reserved Reading location - IP/workstation name: [email or web address]
== END ==
LOC: RAD 15:45
PROVIDERS: ATTEND Internal Medicine Nephrology
DX: I70.1 Atherosclerosis of renal artery (principal)
CPT/HCPCS: C8901